=== PATIENT | female | born 1965 | race African-American/Black ===

== ENCOUNTER 2016-10-16 07:58 | Emergency (ER) | payer OTHER ==
[2016-10-16 08:06] VITALS: TEMP 98.1; BMI 56.6
[2016-10-16] MEDS ORDERED: ALBUTEROL SO4 0.083% IH SOL 2.5 MG/3 ML VIAL.NEB. NEB ONE (09:20)
[2016-10-16] MEDS ORDERED: DEXAMETHASONE LIQUID 0.5 MG/5 ML 240 ML BULK BOTTLE PO ONE (09:48)
[2016-10-16] MEDS ORDERED: ALBUTEROL SO4 2.5/IPRATROPIUM 0.5 INH SOL 3 ML VIAL.NEB. NEB ONE ×3 (09:48→11:01)
[2016-10-16] MEDS ORDERED: DEXAMETHASONE SOD PHOSPHATE 10 MG/1 ML VIAL ONE (09:51)
--- NOTE | 2016-10-16 09:53 | PDOC ---
History of Present Illness - General Chief Complaint: Shortness of Breath Stated Complaint: SOB, DIFFICULTY BREATHING Time Seen by Provider: 10/16/16 08:25 History Source: Patient Exam Limitations: No Limitations - History of Present Illness Initial Comments: 10/16/16 09:49 Patient is a 51-year-old female history of asthma, COPD, insulin-dependent diabetes, hypertension. Patient presents with productive cough, dyspneic, wheezing, states this a.m. had difficulty breathing used her inhaler once last night and once this morning. Patient reports 2 weeks ago ran out of her Singulair and stopped taking it, has been having increased difficulty since. No chest pain. Patient states she has a sensation of phlegm to throat ( postnasal drip) , unable to clear the sensation. O2 sats are 100 percent on room air. + clear productive cough. Past Medical History: Denies. Allergies: No known allergies Medications: See medication list Family History: Non-contributory Social History: Denies smoking, alcohol use, or IVDU Review of Systems GENERAL/CONSTITUTIONAL: No fever or chills. No weakness. No weight change. HEAD, EYES, EARS, NOSE AND THROAT: No change in vision. No ear pain or discharge. No sore throat. CARDIOVASCULAR: No chest pain or shortness of breath. RESPIRATORY: Cough, wheezing, no hemoptysis. Green productive cough. GASTROINTESTINAL: No nausea, vomiting, diarrhea or constipation. No rectal bleeding. GENITOURINARY: No dysuria, frequency, or change in urination. MUSCULOSKELETAL: No joint or muscle swelling or pain. No neck or back pain. SKIN : No rash or easy bruising. NEUROLOGIC: No headache, vertigo, loss of consciousness, or loss of sensation. ALLERGIC/IMMUNOLOGIC: No hives or skin allergy. No latex allergy. Physical Exam: GENERAL: The patient is awake, alert, and fully oriented, in no acute distress. EYES: Pupils equal, round and reactive to light, extraocular movements intact, sclera anicteric, conjunctiva clear. ENT: Ears normal, nares patent, oropharynx clear without exudates. Moist mucous membranes. No uvula deviation. No stridor NECK: Normal range of motion, supple without lymphadenopathy, JVD, or masses. LUNGS: Breath sounds are essentially clear, occasional expiratory wheezing. Noted with clear sputum after coughing. No rales. No decrease at the bases. HEART: Regular rate and rhythm, normal S1 and S2 without murmur, rub or gallop. ABDOMEN: Soft, nontender, normoactive bowel sounds. No guarding, no rebound. No masses. No bruising or abrasions MUSCULOSKELETAL: Normal range of motion, no edema. No clubbing or cyanosis. No cords, erythema, or tenderness. No CVA Tenderness with fist. NEUROLOGICAL: Cranial nerves II through XII grossly intact. Normal speech, normal gait. SKIN: Warm, Dry, normal turgor, no rashes or lesions noted. Past History - Past Medical History Allergies/Adverse Reactions: Allergies Allergy/AdvReac Type Severity Reaction Status Date / Time levofloxacin [From Levaquin] Allergy Rash Verified 10/16/16 08:06 Home Medications: Ambulatory Orders Enalapril Maleate [Vasotec -] 10 mg PO DAILY 09/08/14 Glimepiride [Amaryl -] 4 mg PO DAILY@0700 11/02/15 Insulin Glargine,Hum.rec.anlog [Lantus Solostar PEN (NF)] 20 units SQ HS Oxycodone HCl/Acetaminophen [Percocet 5-325 mg Tablet -] 1 - 2 tab PO Q4H PRN # 10 tablet MDD 4 11/02/15 Budesonide/Formeterol Fumarate [SYMBICORT 160/4.5mcg -] 1 inh PO BID 10/16/16 Montelukast Na [Singulair -] 10 mg PO HS #7 tablet 10/16/16 Prednisone [Deltasone -] 60 mg PO DAILY #15 tablet 10/16/16 Asthma: Yes COPD: Yes Diabetes: Yes HTN: Yes Suicide Attempt (Hx): No - Immunization History Immunization Up to Date: Yes - Psycho/Social/Smoking Cessation Hx Anxiety: No Suicidal Ideation: No Smoking Status: Yes Smoking History: Former smoker Have you smoked in the past 12 months: Yes Number of Cigarettes Smoked Daily: 11 If you are a former smoker, when did you quit?: 04/2015 Information on smoking cessation initiated: No 'Breaking Loose' booklet given: 03/30/13 Hx Alcohol Use: Yes (SOCIAL) Drug/Substance Use Hx: No Substance Use Type: None Hx Substance Use Treatment: No *Physical Exam - Vital Signs Last Vital Signs Temp Pulse Resp BP Pulse Ox 98.1 F 80 20 154/70 100 10/16/16 08:01 10/16/16 08:01 10/16/16 08:01 10/16/16 08:01 10/16/16 08:01 ED Treatment Course - LABORATORY CBC & Chemistry Diagram: 10/16/16 13:12 10/16/16 13:12 Medical Decision Making - Medical Decision Making 10/16/16 09:53 A/P: Patient is a 51-year-old female history of insulin-dependent diabetes, COPD , asthma. Patient states she ran out of her Mixer Labsir 2 weeks ago and feels she is having an exacerbation of her asthma. Combivent treatment given upon arrival, albuterol after, patient then reassessed , still with dyspnea. Third albuterol treatment given. Blood Sugar was 259, will give single dose of Decadron with strict instructions to monitor sugars . Patient reports that she did not take her medication prior to arrival for the diabetes. Decadron 10 mg by mouth 10/16/16 12:26 Patient still wheezing, dyspnea, not responding well to third treatment. Chest x -ray ordered. Patient transferred to main emergency department for higher level of care. Patient states she feels postnasal drip, tightening in throat and upper chest. Coughing clear sputum. Patient was initially triaged to Fast-track. After review of the history of present illness and physical examination by Nurse Practitioner, the patient was transferred to the main ED for higher lever of care. The patient is medically stable for transfer. 10/16/16 13:37 *DC/Admit/Observation/Transfer Diagnosis at time of Disposition: Upper respiratory infection Qualifiers: URI type: acute laryngitis Qualified Code(s): J04.0 - Acute laryngitis - Discharge Dispostion Disposition: HOME Condition at time of disposition: Stable Admit: No - Prescriptions Prescriptions: Prednisone [Deltasone -] 60 mg PO DAILY #15 tablet Montelukast Na [Singulair -] 10 mg PO HS #7 tablet - Referrals Referrals: Palmer Edmondson MD [Staff Physician] - - Patient Instructions Printed Discharge Instructions: DI for Croup Additional Instructions: You have croup. Croup is a viral respiratory infection that can cause sore throat, and the feeling like you are breathing through a straw. Take the prednisone as prescribed and take the entire prescription even if you are feeling better. Take 3 tabs of prednisone once a day for 5 days. Your singular was filled for 7 days. Follow up with your Pulmonolgist. You may also use a nebulizer with humidified air to help with your symptoms every few hours. Follow up with your primary care doctor in one week. Return to the ED if you have shortness of breath, feeling like your throat is closing, or if you have any changes in your symptoms. - Post Discharge Activity Work/School Note: Back to Work
[2016-10-16] MEDS ORDERED: MONTELUKAST NA 10 MG TABLET PO ONE (13:07)
[2016-10-16] MEDS ORDERED: guaiFENesin 200 MG/10 ML 10 ML UNIT-DOSE CUPS PO ONE (13:14)
--- NOTE | 2016-10-16 13:15 | PDOC ---
*Physical Exam - Vital Signs Last Vital Signs Temp Pulse Resp BP Pulse Ox 98.1 F 80 20 154/70 100 10/16/16 08:01 10/16/16 08:01 10/16/16 08:01 10/16/16 08:01 10/16/16 08:01 - Physical Exam Comments: 10/16/16 15:26 Received signout from nurse practitioner Tere Sebastian. Patient is a 51-year- old female who presents to the emergency department for shortness of breath and sore throat. Patient states that her symptoms started a couple days ago and she feels like her throat is closing. Patient has history of COPD and ran out of her Singulair 5 days ago. Received 3 duonebs and decadron in fast track with little relief. General Appearance: Yes: Nourished, Appropriately Dressed, Mild Distress HEENT: positive: EOMI, GINGER, Normal ENT Inspection, TMs Normal, Pharynx Normal. negative: Normal Voice (decreased voice) Neck: positive: Trachea midline, Normal Thyroid, Supple. negative: Tender, Rigid, Lymphadenopathy (R), Lymphadenopathy (L) Respiratory/Chest: positive: Lungs Clear, Normal Breath Sounds, Respiratory Distress (mild; Pt states she feels like she is breathing through a straw). negative: Accessory Muscle Use Cardiovascular: positive: Regular Rhythm, Regular Rate, S1, S2 (present). negative: JVD, Murmur Gastrointestinal/Abdominal: positive: Normal Bowel Sounds, Flat, Soft. negative : Tender, Organomegaly Integumentary: positive: Normal Color, Dry, Warm Neurologic: positive: Fully Oriented, Alert, Normal Mood/Affect, Normal Response , Motor Strength /5 ED Treatment Course - LABORATORY CBC & Chemistry Diagram: 10/16/16 13:12 10/16/16 13:12 - ADDITIONAL ORDERS Additional order review: Laboratory Results 10/16/16 09:35 POC Glucometer [id number] 10/16/16 09:35 POC Glucometer [id number] - Medications Given in the ED: ED Medications Discontinued Medications Generic Name Dose Route Start Last Admin Trade Name Freq PRN Reason Stop Dose Admin Albuterol/Ipratropium 1 amp 10/16/16 09:48 10/16/16 09:50 Duoneb - NEB 10/16/16 09:49 1 amp ONCE ONE Administration Albuterol/Ipratropium 1 amp 10/16/16 11:01 10/16/16 11:02 Duoneb - NEB 10/16/16 11:02 1 amp ONCE ONE Administration Dexamethasone 10 mg 10/16/16 09:48 10/16/16 09:53 Decadron Liquid - PO 10/16/16 09:49 1 dose ONCE ONE Administration Medical Decision Making - Medical Decision Making 10/16/16 15:24 Pt. presents with shortness of breath, and difficulty breathing. Breath sounds are normal and there is no wheezing appreciated. Most likely upper respiratory infection, cannot r/o epiglottitis, croup. 1. CBC, CMP, Trop, PT/INR 2. Rapid Strep 3. CXR, EKG, Soft tissue neck x-ray 4. Racemic epi, singular and mucinex 5. Re-evaluate 10/16/16 16:15 Strep is negative at this time. WBC slightly elevated at 11 CXR: negative for acute pulmonary pathology Pt. reports feeling a little better after the racemic epi and decadron (given in fast track) X-ray neck: narrowing of the trachea, (+) steeple sign. 10/16/16 16:23 Most likely croup. Pt. feeling better and ready to go home. Discharged home with prednisone and follow up with pulmonology.Pt. understands that she needs to check her sugars regularly at home while on the steroids as they can make her sugar elevated. Pt. understands all discharge instructions and all questions were answered at this time *DC/Admit/Observation/Transfer Diagnosis at time of Disposition: Upper respiratory infection Qualifiers: URI type: acute laryngitis Qualified Code(s): J04.0 - Acute laryngitis - Discharge Dispostion Disposition: HOME Condition at time of disposition: Stable Admit: No - Prescriptions Prescriptions: Prednisone [Deltasone -] 60 mg PO DAILY #15 tablet Montelukast Na [Singulair -] 10 mg PO HS #7 tablet - Referrals Referrals: Palmer Edmondson MD [Staff Physician] - - Patient Instructions Printed Discharge Instructions: DI for Croup Additional Instructions: You have croup. Croup is a viral respiratory infection that can cause sore throat, and the feeling like you are breathing through a straw. Take the prednisone as prescribed and take the entire prescription even if you are feeling better. Take 3 tabs of prednisone once a day for 5 days. Your singular was filled for 7 days. Follow up with your Pulmonolgist. You may also use a nebulizer with humidified air to help with your symptoms every few hours. Follow up with your primary care doctor in one week. Return to the ED if you have shortness of breath, feeling like your throat is closing, or if you have any changes in your symptoms. - Post Discharge Activity Work/School Note: Back to Work
[2016-10-16] MEDS ORDERED: guaiFENesin/D-METHORPHAN HB 10 ML UNIT-DOSE CUPS ONE (13:24)
[2016-10-16] MEDS ORDERED: MONTELUKAST NA 10 MG TABLET ONE (13:25)
[2016-10-16] MEDS ORDERED: RACEPINEPHRINE IH SOL 2.25% 11.25 MG/0.5 ML VIAL IH ONE (13:27)
[2016-10-16] MEDS ORDERED: RACEPINEPHRINE IH SOL 2.25% 11.25 MG/0.5 ML VIAL NEB ONE (13:31)
[2016-10-16] MEDS ORDERED: ONDANSETRON 4 MG/2 ML VIAL ONE ×2 (13:35→13:39)
[2016-10-16] MEDS ORDERED: ONDANSETRON 4 MG/2 ML VIAL IVPUSH ONE (13:35)
--- NOTE | 2016-10-16 13:45 | PDOC ---
*Physical Exam - Vital Signs Last Vital Signs Temp Pulse Resp BP Pulse Ox 98.1 F 80 20 154/70 100 10/16/16 08:01 10/16/16 08:01 10/16/16 08:01 10/16/16 08:01 10/16/16 08:01 - Physical Exam Comments: 10/16/16 13:39 VSS hoarse voice, airway patent without stridor, handling secretions easily. oropharynx clear with uvula midline, no edema/exudate/erythema lungs clear with good air entry, no prolonged expiration, no focally decreased breath sounds ED Treatment Course - LABORATORY CBC & Chemistry Diagram: 10/16/16 13:12 10/16/16 13:12 - ADDITIONAL ORDERS Additional order review: Laboratory Results 10/16/16 09:35 POC Glucometer [id number] 10/16/16 09:35 POC Glucometer [id number] - Medications Given in the ED: ED Medications Discontinued Medications Generic Name Dose Route Start Last Admin Trade Name Freq PRN Reason Stop Dose Admin Albuterol/Ipratropium 1 amp 10/16/16 09:48 10/16/16 09:50 Duoneb - NEB 10/16/16 09:49 1 amp ONCE ONE Administration Albuterol/Ipratropium 1 amp 10/16/16 11:01 10/16/16 11:02 Duoneb - NEB 10/16/16 11:02 1 amp ONCE ONE Administration Dexamethasone 10 mg 10/16/16 09:48 10/16/16 09:53 Decadron Liquid - PO 10/16/16 09:49 1 dose ONCE ONE Administration Epinephrine 1 vial 10/16/16 13:27 10/16/16 13:31 S-2 IH 10/16/16 13:28 1 vial ONCE ONE Administration Guaifenesin 10 ml 10/16/16 13:14 10/16/16 13:30 Robitussin - PO 10/16/16 13:15 10 ml ONCE ONE Administration Montelukast Sodium 10 mg 10/16/16 13:07 10/16/16 13:30 Singulair - PO 10/16/16 13:08 10 mg ONCE ONE Administration Medical Decision Making - Medical Decision Making 10/16/16 13:41 Patient seen and evaluated with the nurse practitioner. I agree with the overall evaluation, assessment, and management with the following summary of visit: 51-year-old female with history of COPD and diabetes presents with upper respiratory infection symptoms of initially mild cough 2 days ago that worsened yesterday and became associated with throat tightness/pain and reflexive cough. Denies any shortness of breath, does not feel that this is her asthma/COPD exacerbation. No fevers or chills, no difficulty swallowing, no painful swallowing. no known sick contacts. Upper airway infection/inflammation, ? bronchitis/croup, less likely epiglottitis given no pain or fever. received nebs and steroids in fast track without much improvement check labs/CXR trial of upper airway decongestants and racemic epi soft tissue neck xray reassess/dispo *DC/Admit/Observation/Transfer Diagnosis at time of Disposition: Upper respiratory infection Qualifiers: URI type: acute laryngitis Qualified Code(s): J04.0 - Acute laryngitis
[2016-10-16 13:51] LABS: BASOPHIL 0.4 % (0-2.0); EOSINOPHIL 0.1 % (0-4.5); MCH 29.4 pg (25.7-33.7); MEAN CELL VOLUME 88.9 fl (80-96); MEAN PLT VOLUME 9.2 fl (7.5-11.1); NEUTROPHILS 87.4 % (42.8-82.8); PLATELET COUNT 222 K/MM3 (134-434); RDW 14.3 % (11.6-15.6); WHITE BLOOD COUNT 11.4 K/mm3 (4.0-10.0)
[2016-10-16 13:57] LABS: ALBUMIN 3.7 g/dl (3.4-5.0); ALK PHOS 93 U/L (45-117); ANION GAP 10 (8-16); BILIRUBIN,TOTAL 0.5 mg/dL (0.2-1.0); CALCIUM 8.7 mg/dL (8.5-10.1); CO2 23 mmol/L (21-32); CREATININE 0.9 mg/dL (0.55-1.02); SGOT/AST 13 U/L (15-37); SGPT/ALT 23 U/L (12-78); TOT PROT 7.7 g/dl (6.4-8.2)
[2016-10-16 14:00] LABS: TROPONIN I < 0.02 ng/ml (0.00-0.05)
[2016-10-16 14:03] LABS: GLUCOSE,RANDOM 304 mg/dL (74-106); INR 0.96 (0.82-1.09); PROTHROMBIN TIME (PATIENT) 10.6 SEC (9.98-11.88)
[2016-10-16 16:45] VITALS: BP 149/102; PULSE 82
== END 2016-10-16 16:45 | disposition home or self-care (01) ==
LOC: JER 07:58 → JERFT 07:58 → JER 16:45
PROC: 3E0F7GC Introduction of Other Therapeutic Substance into Respiratory Tract, Via Natural or Artificial Opening (ICD-10-PCS; principal; 2016-10-16)
PROC: 3E0F7GC Introduction of Other Therapeutic Substance into Respiratory Tract, Via Natural or Artificial Opening (ICD-10-PCS; 2016-10-16)
PROC: 3E0F7GC Introduction of Other Therapeutic Substance into Respiratory Tract, Via Natural or Artificial Opening (ICD-10-PCS; 2016-10-16)
PROC: 3E033GC Introduction of Other Therapeutic Substance into Peripheral Vein, Percutaneous Approach (ICD-10-PCS; 2016-10-16)
DX: J06.9 Acute upper respiratory infection, unspecified (principal); J04.0 Acute laryngitis; J45.909 Unspecified asthma, uncomplicated; J44.9 Chronic obstructive pulmonary disease, unspecified; E11.9 Type 2 diabetes mellitus without complications; I10 Essential (primary) hypertension; Z79.4 Long term (current) use of insulin; Z79.84 Long term (current) use of oral hypoglycemic drugs
CPT/HCPCS: 36415; 70360-TC; 71020-TC; 80053; 82550; 83880; 84484; 85025; 85610; 87070; 87430; 99282-25

== ENCOUNTER 2017-08-04 11:10 | Observation (INO) | payer BC, OTHER ==
--- NOTE | 2017-08-04 11:22 | PDOC ---
History of Present Illness - General Stated Complaint: CHEST PAIN History Source: Patient, EMS Exam Limitations: No Limitations - History of Present Illness Initial Comments: 08/04/17 11:53 Pt is a 52 yo with PMHx of HTN, COPD, DM and current smoker, not compliant on medications, presenting with sudden onset chest pain this afternoon. Pt noted a 10/10 sudden retrosternal/left sided gripping chest pain radiating to L arm this afternoon after smoking a cigarette. 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 It lasted for about 10seconds with associated shortness of breath. The pain was worsened by leaning forward and improved by laying flat. Pt reports never having similar symptoms in the past. On her way to the ER, in the ambulance she felt a numbness on the left side of her face with twitching of her L arm and fingers. Pt reports having intermittent twitches and numbness in the past. No blurring of vision, no facial droop, no slurred speechor weakness of any side of her body. Pt reports not taking medications for several months. No fevers or headaches, no hx of bug bites, no siezures or syncope. No cough or dyspepsia. No abdominal pain or dysuria. 08/04/17 14:58 Timing/Duration: unsure Severity: moderate Associated Symptoms: denies: cough, fever/chills Past History - Past Medical History Allergies/Adverse Reactions: Allergies Allergy/AdvReac Type Severity Reaction Status Date / Time levofloxacin [From Levaquin] Allergy Rash Verified 10/16/16 08:06 Home Medications: Ambulatory Orders Enalapril Maleate [Vasotec -] 10 mg PO DAILY 08/04/17 Asthma: Yes COPD: Yes Diabetes: Yes HTN: Yes - Immunization History Immunization Up to Date: Yes - Suicide/Smoking/Psychosocial Hx Smoking Status: Yes Smoking History: Former smoker Have you smoked in the past 12 months: Yes Number of Cigarettes Smoked Daily: 11 If you are a former smoker, when did you quit?: 04/2015 'Breaking Loose' booklet given: 03/30/13 Hx Alcohol Use: Yes (SOCIAL) Drug/Substance Use Hx: No Substance Use Type: None Hx Substance Use Treatment: No Review of Systems - Review of Systems Constitutional: No: Chills, Diaphoresis, Fever, Loss of Appetite, Night Sweats, Weakness HEENTM: Yes: Other (Pt repeated transient numbness on L side of her face). No: Blurred Vision, Nose Congestion, Throat Pain *Physical Exam - Physical Exam General Appearance: Yes: Appropriately Dressed, Obese. No: Apparent Distress HEENT: positive: EOMI, GINGER, Normal ENT Inspection, Symmetrical. negative: Pharyngeal Erythema Neck: positive: Supple. negative: Tender Respiratory/Chest: positive: Lungs Clear, Normal Breath Sounds. negative: Chest Tender, Respiratory Distress, Wheezing Cardiovascular: positive: Regular Rate, S1, S2. negative: Edema Gastrointestinal/Abdominal: positive: Normal Bowel Sounds, Soft Musculoskeletal: negative: CVA Tenderness Extremity: positive: Normal Inspection. negative: Pedal Edema, Calf Tenderness Integumentary: positive: Dry, Warm. negative: Cyanotic Neurologic: positive: Fully Oriented, Alert, Motor Strength 5/5, Sensory Deficit (questionable reduced touch sensation on the L side of face and LUE) Heart Score/ECG Review - History History: Moderately suspicious - Electrocardiogram EKG: Normal - Age Age: 45-65 - Risk Factors Risk Factors Heart Score: Yes Hx Hypertension, Yes Hx Diabetes, Yes Smoking History Based on the list above the patient has:: >/=3 risk factors or Hx atherosclerotic disease - Troponin Troponin: </= normal limit - Score Heart Score - Total: 4 ED Treatment Course - LABORATORY CBC & Chemistry Diagram: 08/04/17 11:55 08/04/17 11:55 Medical Decision Making - Medical Decision Making 08/04/17 14:12 Basic labs- CBC, CMP, PT/PTT, trops, EKG, Cardiac monitoring- R/O ACS CT head done Considering hx of altered L side sensation, seems to have resolved R/O stroke CT head negative Trop negative for repeat in 4 hours 08/04/17 14:17 D/W Dr April [place] Patient has been accepted for tele obs admission under Dr Lopez Requested to consult Dr Ramesh *DC/Admit/Observation/Transfer Diagnosis at time of Disposition: Atypical chest pain - Discharge Dispostion Disposition: AGAINST MEDICAL ADVICE Admit: Yes - Referrals - Patient Instructions - Post Discharge Activity - Attestations Physician Attestion: 08/04/17 14:18 Jocelyn Laguna MD
--- NOTE | 2017-08-04 11:27 | PDOC ---
Attending Attestation - Resident Resident Name: Jocelyn Laguna Slade - HPI HPI: 08/04/17 12:26 The patient is a 52 year old female with past medical history of hypertension, IDDM, COPD, and asthma who arrives to the ED via EMS for chest pain that began this morning. The patient states that she felt a profound sharp pain in her left chest this morning that caused her to go down and slip out of the chair she was sitting in. She states the pain radiated to her left upper back and was associated with numbness in her left face and left upper extremity. It was not associated with any LOC, palpitations or diaphoresis. She reports that for the past few weeks she has been experiencing dull chest pains as well as loss of sensation in her left face and arm, but today the pain was severe. She also adds that she has been off of her blood pressure medications for a few weeks due to not getting a refill on her prescription. She denies any cough, shortness of breath, nausea, vomiting, diarrhea, or urinary complaints. - Physicial Exam PE: 08/04/17 12:27 GENERAL: Awake, alert, and fully oriented, in no acute distress HEAD: No signs of trauma EYES: PERRLA, EOMI, sclera anicteric, conjunctiva clear ENT: Auricles normal inspection, hearing grossly normal, nares patent, oropharynx clear without exudates. Moist mucosa NECK: Normal ROM, supple, no lymphadenopathy, JVD, or masses LUNGS: Breath sounds equal, clear to auscultation bilaterally. No wheezes, and no crackles HEART: Regular rate and rhythm, normal S1 and S2, no murmurs, rubs or gallops ABDOMEN: Soft, nontender, normoactive bowel sounds. No guarding, no rebound. No masses EXTREMITIES: Normal range of motion, no edema. No clubbing or cyanosis. No cords, erythema, or tenderness NEUROLOGICAL: A&O x3 5/5 strength in bilateral upper and lower extremities. Decreased light touch and pin prick sensation over L face and arm. Cranial nerves II through XII grossly intact. Normal speech SKIN: Warm, Dry, normal turgor, no rashes or lesions noted. - Medical Decision Making 08/04/17 12:28 Documentation prepared by Jhoana Montenegro, acting as medical insurance claims specialist for Katherine Moreland MD. <Jhoana Montenegro - Last Filed: 08/04/17 12:26> - Medical Decision Making 08/04/17 12:57 Pt presents to the ED complaining of chest pain and L sided arm and face numbness. History of multiple TIAs and HTN, non compliant with meds. EKG shows normal sinus rhythm without St changes. Given her persistent chest pain and multiple risk factors, I feel that the patient is at moderate risk of ACS and should be observed to rule out ACS. <Katherine Moreland - Last Filed: 08/04/17 13:04>
[2017-08-04] MEDS ORDERED: ASPIRIN 81 MG CHEWABLE TABLETS PO ONE (11:37)
[2017-08-04] MEDS ORDERED: ASPIRIN 81 MG CHEWABLE TABLETS ONE (11:44)
[2017-08-04 12:06] LABS: BASO % 1.3 % (0-2.0); EOS % 3.1 % (0-4.5); HEMOGLOBIN 15.2 GM/dL (10.7-15.3); LYMPH % 34.5 % (8-40); MCH 31.2 pg (25.7-33.7); MCHC 34.4 g/dl (32.0-36.0); MEAN CELL VOLUME 90.6 fl (80-96); MEAN PLT VOLUME 8.7 fl (7.5-11.1); MONO % 7.9 % (3.8-10.2); NEUT % 53.2 % (42.8-82.8); PLATELET COUNT 252 K/MM3 (134-434); RBC 4.86 M/mm3 (3.60-5.2); RDW 13.5 % (11.6-15.6); WHITE BLOOD COUNT 8.5 K/mm3 (4.0-10.0)
[2017-08-04 12:17] VITALS: PULSE 78; BMI 60.0
[2017-08-04 12:23] LABS: INR 0.97 (0.82-1.09)
[2017-08-04 12:33] LABS: ALBUMIN 3.5 g/dl (3.4-5.0); ANION GAP 11 (8-16); BLOOD UREA NITROGEN 9 mg/dL (7-18); CHLORIDE 105 mmol/L (98-107); CO2 25 mmol/L (21-32); CREATININE 0.7 mg/dL (0.55-1.02); GLUCOSE,RANDOM 209 mg/dL (74-106); POTASSIUM 4.2 mmol/L (3.5-5.1); SGOT/AST 14 U/L (15-37); SGPT/ALT 23 U/L (12-78); SODIUM 141 mmol/L (136-145)
[2017-08-04 12:37] LABS: ALK PHOS 84 U/L (45-117); BILIRUBIN,TOTAL 0.8 mg/dL (0.2-1.0); TOT PROT 7.1 g/dl (6.4-8.2)
[2017-08-04 14:22] VITALS: BP 118/68; TEMP 98.2
--- NOTE | 2017-08-04 16:11 | EKG ---
Test Reason : Blood Pressure : / mmHG Vent. Rate : 080 BPM Atrial Rate : 080 BPM P-R Int : 188 ms QRS Dur : 082 ms QT Int : 416 ms P-R-T Axes : 047 020 027 degrees QTc Int : 479 ms NORMAL SINUS RHYTHM CANNOT RULE OUT ANTERIOR INFARCT , AGE UNDETERMINED ABNORMAL ECG WHEN COMPARED WITH ECG OF 08-SEP-2014 09:25, NO SIGNIFICANT CHANGE WAS FOUND Confirmed by MD Jame, Lino ([id number]) on 08/04/2017 4:11:20 PM Referred By: Confirmed By:Lino Kilgore MD
[2017-08-04 16:45] LABS: URINE APPEARANCE SLCLOUDY; URINE BILIRUBIN NEGATIVE (<2.0 mg/dL); URINE COLOR YELLOW; URINE GLUCOSE (UA) 2+ (NEGATIVE); URINE KETONE TRACE (NEGATIVE); URINE NITRITE POSITIVE (NEGATIVE); URINE PROTEIN NEGATIVE (NEGATIVE); URINE UROBILINOGEN NEGATIVE mg/dL (0.2-1.0)
[2017-08-04 16:48] LABS: URINE LEUK ESTERASE 3+ (NEGATIVE)
[2017-08-04 16:50] LABS: EPI CELLS RARE /HPF (FEW); URINE BACTERIA MANY /hpf (NONE SEEN); URINE MUCUS RARE
--- NOTE | 2017-08-05 10:45 | CON.CARD ---
Consult Consult Specialty:: cardio - History of Present Illness Chief Complaint: cp History of Present Illness: 52 yo female here with chest pain PMH: HTN, COPD, DM, active cigs - Past Medical History Pulmonary: Yes: Asthma ...LMP: 10/21/13 - Past Surgical History Past Surgical History: Yes: None - Alcohol/Substance Use Hx Alcohol Use: Yes (SOCIAL) - Smoking History Smoking history: Former smoker Have you smoked in the past 12 months: Yes Aproximately how many cigarettes per day: 11 If you are a former smoker, when did you quit?: 04/2015 Home Medications - Allergies Allergies/Adverse Reactions: Allergies Allergy/AdvReac Type Severity Reaction Status Date / Time levofloxacin [From Levaquin] Allergy Rash Verified 10/16/16 08:06 - Home Medications Home Medications: Ambulatory Orders Enalapril Maleate [Vasotec -] 10 mg PO DAILY 08/04/17 Vital Signs: Vital Signs Temperature 98.2 F 08/04/17 14:15 Pulse Rate 78 08/04/17 14:15 Respiratory Rate 18 08/04/17 14:15 Blood Pressure 118/68 08/04/17 14:15 O2 Sat by Pulse Oximetry (%) 99 08/04/17 14:15 - Other Data Labs, Other Data: CBC, BMP 08/04/17 11:55 08/04/17 11:55 INR, PTT INR 0.97 (0.82-1.09) 08/04/17 11:55 Troponin, BNP 08/04/17 08/04/17 11:55 14:50 Troponin I < 0.02 < 0.02 Troponin, BNP 08/04/17 08/04/17 11:55 14:50 Troponin I < 0.02 < 0.02 Laboratory Tests 08/04/17 08/04/17 08/04/17 11:55 11:55 14:50 WBC 8.5 Hgb 15.2 Plt Count 252 Sodium 141 Potassium 4.2 Carbon Dioxide 25 BUN 9 Creatinine 0.7 AST 14 L ALT 23 Troponin I < 0.02 < 0.02 Assessment/Plan ECG: NSR. normal axis. no path q's. nosnp TWAs septal leads--change vs 08/2014 prior CXR: chest pain: -mult CV rf's -trop negative initially--repeat ordered -ECG with nonspecific T wave changes vs prior -check CXR once urine negative HTN: -bp up initially, reportedly with med non-compliance hx -bp normalized--observe trend DM: -per PMD HPL: -cont home meds (if pt willing), list to be clarified by pmd + cigs, active: -cessation benefits counselled
--- NOTE | 2017-08-05 19:35 | HP ---
Admitting History and Physical - Admission History of Present Illness: I went to see pt this afternoon. Apparently pt had signed out ama last evening. - Past Medical History Pulmonary: Yes: Asthma ...LMP: 10/21/13 - Past Surgical History Past Surgical History: Yes: None - Smoking History Smoking history: Former smoker Have you smoked in the past 12 months: Yes Aproximately how many cigarettes per day: 11 If you are a former smoker, when did you quit?: 04/2015 - Alcohol/Substance Use Hx Alcohol Use: Yes (SOCIAL) Home Medications - Allergies Allergies/Adverse Reactions: Allergies Allergy/AdvReac Type Severity Reaction Status Date / Time levofloxacin [From Levaquin] Allergy Rash Verified 10/16/16 08:06 - Home Medications Home Medications: Ambulatory Orders Enalapril Maleate [Vasotec -] 10 mg PO DAILY 08/04/17 Physical Examination Vital Signs: Vital Signs Temperature 98.2 F 08/04/17 14:15 Pulse Rate 78 08/04/17 14:15 Respiratory Rate 18 08/04/17 14:15 Blood Pressure 118/68 08/04/17 14:15 O2 Sat by Pulse Oximetry (%) 99 08/04/17 14:15 Labs: CBC, BMP 08/04/17 11:55 08/04/17 11:55
== END 2017-08-04 18:15 | disposition left against medical advice (07) ==
LOC: JER 11:10 → JERBED 14:18
PROVIDERS: ADMIT Internal Medicine; ATTEND Internal Medicine
DX: R07.89 Other chest pain (principal); I10 Essential (primary) hypertension; E11.9 Type 2 diabetes mellitus without complications; J44.9 Chronic obstructive pulmonary disease, unspecified; F17.210 Nicotine dependence, cigarettes, uncomplicated; E66.9 Obesity, unspecified; Z68.44 Body mass index [BMI] 60.0-69.9, adult; Z91.14 Patient's other noncompliance with medication regimen; Z88.1 Allergy status to other antibiotic agents
CPT/HCPCS: 36415; 70450-TC; 80053; 81003; 81015; 82550; 84484; 84703; 85025; 85610; 85730; 93005; 93010; 99282-25; G0378

== ENCOUNTER 2018-01-13 19:15 | Emergency (ER) | payer SELFPAY ==
[2018-01-13 19:56] VITALS: TEMP 98.1; BMI 60.0
--- NOTE | 2018-01-13 19:57 | PDOC ---
Rapid Medical Evaluation Chief Complaint: Lightheaded Time Seen by Provider: 01/13/18 19:53 Medical Evaluation: Allergies Allergy/AdvReac Type Severity Reaction Status Date / Time levofloxacin [From Levaquin] Allergy Rash Verified 10/16/16 08:06 01/13/18 19:55 I have performed a brief in person evaluation of this patient. The patient presents with a chief complaint of: Dizziness Pt was recently discharged from the hospital with dx of Menieres disease. She is currently taking Scopolamine patches which she states is not working. Pt also states that "they see lesions on my head CT and my insurance will not pay for an MRI." Pertinent PE: Skin: Clear Lungs: Clear Heart: RRR MS: Moves all extremities without difficulty. Neuro: Alert and oriented. Smile symmetric, no slurred speech, no protonator drift Psych: Appropriate affect The patient will proceed to: pt will go to the main ED for further evaluation. Discharge Disposition - Diagnosis Meniere disease Qualifiers: Laterality: left Qualified Code(s): H81.02 - Meniere's disease, left ear - Referrals - Patient Instructions - Post Discharge Activity
--- NOTE | 2018-01-13 23:18 | PDOC ---
Attending Attestation - Resident Resident Name: Jarad Cat - ED Attending Attestation I have performed the following: I have examined & evaluated the patient, The case was reviewed & discussed with the resident, I agree w/resident's findings & plan, Exceptions are as noted - Medical Decision Making 01/13/18 23:41 pt feels much better ,her vertigo has resolved -she took her scopalamine and meclizine before coming here -however she didnt take the full dose of her meclizine imp pt just discharged from [facility] after being diagnosed with Meniere's ds plan see Dr Xavi garcia thsi Saturday,arrange for her MRI <Elsa Webb - Last Filed: 01/13/18 23:41> - HPI HPI: 01/13/18 23:20 The patient is a 53 year old female, with a significant past medical history of COPD and new diagnosis of Meniere's disease (admitted to [facility] for 5 days and prescribed medications), who presents to the emergency department with dizziness which has resolved at this time. She states she would like to go home. She states she only took 12.5 of the 25mg meclizine prescribed to her. The patient denies chest pain, shortness of breath, headache. The patient denies fever, chills, nausea, vomit, diarrhea and constipation. The patient denies dysuria, frequency, urgency and hematuria. Allergies: levofloxacin - Physicial Exam PE: 01/13/18 23:21 GENERAL: Well-appearing, well-nourished. No apparent distress. HEENT: Normocephalic, atraumatic. PERRL, EOM intact. CARDIOVASCULAR: Normal S1, S2. Regular rate and rhythm. PULMONARY: Clear to auscultation bilaterally. ABDOMEN: Soft, non-distended, non-tender. EXTREMITIES: Normal ROM in all four extremities. No gross deformities. SKIN: Warm, dry. No rash NEUROLOGICAL: No focal neurological deficits. - Medical Decision Making 01/13/18 23:21 Documentation prepared by Aliyah Kulkarni, acting as medical office representative for Elsa Webb MD <Aliyah Kulkarni - Last Filed: 01/13/18 23:46>
[2018-01-13] MEDS ORDERED: MECLIZINE HCL 25 MG TABLET (FP) PO ONE (23:23)
--- NOTE | 2018-01-13 23:27 | PDOC ---
History of Present Illness - General Chief Complaint: Lightheaded Stated Complaint: DIFF. BREATHING Time Seen by Provider: 01/13/18 19:53 - History of Present Illness Initial Comments: 53 yo F w a hx of hypertension, IDDM, COPD, asthma, and a recently diagnosed Menierres disease at [facility] who arrives to the ED with the CC of Left ear pain, tinnitus and vertigo. She reports that the pain was worse earlier today but by the time I arrived at bedside to interview the patient the pain and dizziness had subsided. She was given prescriptions for meclizine and scopolamine by [facility] but she only took half of her prescribed dose of meclizine - 12.5. She has no other complaints at the moment. Denies any fever, chills, diarrhea, chest pain. PCP: elliott mendez Social Hx: smokes 1/3 PPD. Denies alcohol illicit drugs. Allergies: levofloxacin Past History - Past Medical History Allergies/Adverse Reactions: Allergies Allergy/AdvReac Type Severity Reaction Status Date / Time levofloxacin [From Levaquin] Allergy Rash Verified 01/13/18 19:56 Home Medications: Ambulatory Orders Penicillin V Potassium [Pen Vee K] 500 mg PO TID #21 tablet 07/27/11 Enalapril Maleate [Vasotec -] 10 mg PO DAILY 08/04/17 Asthma: Yes COPD: Yes Diabetes: Yes HTN: Yes - Immunization History Immunization Up to Date: Yes - Suicide/Smoking/Psychosocial Hx Smoking Status: Yes Smoking History: Never smoked Have you smoked in the past 12 months: Yes Number of Cigarettes Smoked Daily: 6 If you are a former smoker, when did you quit?: 04/2015 'Breaking Loose' booklet given: 03/30/13 Hx Alcohol Use: Yes (SOCIAL) Drug/Substance Use Hx: No Substance Use Type: None Hx Substance Use Treatment: No Review of Systems - Review of Systems Comments:: CONSTITUTIONAL: Absent: fever, chills, diaphoresis, generalized weakness, malaise, loss of appetite HEENT: Present: ear pain Absent: rhinorrhea, nasal congestion, throat pain, throat swelling, difficulty swallowing, mouth swelling, ear pain, visual Changes CARDIOVASCULAR: Absent: chest pain, syncope, palpitations, irregular heart rate, lightheadedness , peripheral edema RESPIRATORY: Present: Cough, shortness of breath Absent: dyspnea with exertion, orthopnea, wheezing, stridor, hemoptysis GASTROINTESTINAL: Absent: abdominal pain, abdominal distension, nausea, vomiting, diarrhea, constipation, melena, hematochezia GENITOURINARY: Absent: dysuria, frequency, urgency, hesitancy, hematuria, flank pain, genital pain MUSCULOSKELETAL: Absent: myalgia, arthralgia, joint swelling SKIN: Absent: rash, itching, pallor HEMATOLOGIC/IMMUNOLOGIC: Absent: easy bleeding, easy bruising, lymphadenopathy, frequent infections ENDOCRINE: Absent: unexplained weight gain, unexplained weight loss, heat intolerance, cold intolerance NEUROLOGIC: Present: Dizziness Absent: headache, focal weakness or paresthesias, seizure, mental status changes , bladder or bowel incontinence PSYCHIATRIC: Absent: anxiety, depression, suicidal or homicidal ideation, hallucinations. *Physical Exam - Vital Signs Last Vital Signs Temp Pulse Resp BP Pulse Ox 98.1 F 74 18 136/69 99 01/13/18 19:53 01/13/18 19:53 01/13/18 19:53 01/13/18 19:53 01/13/18 19:53 - Physical Exam Comments: GENERAL: Awake and alert. No acute distress. HEENT: Normocephalic, atraumatic. PERRLA, EOMI. No conjunctival pallor. Sclera are non- icteric. Moist mucous membranes. Oropharynx is clear. NECK: Supple. Full ROM. No JVD. No thyromegaly. No lymphadenopathy. CARDIOVASCULAR: Regular rate and rhythm. No murmurs, rubs, or gallops. Distal pulses are 2+ and symmetric. PULMONARY: No evidence of respiratory distress. Lungs clear to auscultation bilaterally. No wheezing, rales or rhonchi. ABDOMINAL: Soft. Non-tender. Non-distended. No rebound or guarding. No organomegaly. Normoactive bowel sounds. MUSCULOSKELETAL Normal range of motion at all joints. No bony deformities or tenderness. No CVA tenderness. EXTREMITIES: No cyanosis. No clubbing. No edema. No calf tenderness. SKIN: Warm and dry. Normal capillary refill. No rashes. No jaundice. NEUROLOGICAL: Alert, awake, appropriate. There is decreased sensation on the left side of her face. Decreased hearing out of the left ear. No motor deficits in the in face, upper extremities and lower extremities. Normal speech. PSYCHIATRIC: Cooperative. Good eye contact. Appropriate mood and affect. Medical Decision Making - Medical Decision Making 53 yo F w a hx of hypertension, IDDM, COPD, asthma, and a recently diagnosed Menierres disease at [facility] who arrives to the ED with the CC of Left ear pain, tinnitus and vertigo. She reports that the pain was worse earlier today but by the time I arrived at bedside to interview the patient the pain and dizziness had subsided. She was given prescriptions for meclizine and scopolamine by [facility] but she only took half of her prescribed dose of meclizine - 12.5. Plan: meclizine Will DC patient with ENT FU, PCP fu, MRI referral. *DC/Admit/Observation/Transfer Diagnosis at time of Disposition: Meniere disease Qualifiers: Laterality: left Qualified Code(s): H81.02 - Meniere's disease, left ear - Discharge Dispostion Disposition: HOME Condition at time of disposition: Stable Decision to Admit order: No - Referrals Referrals: Peter Lopez MD [Primary Care Provider] - Wei Angel MD [Staff Physician] - - Patient Instructions Printed Discharge Instructions: DI for Meniere's Disease Additional Instructions: You came into the ER with tinnitus, ear pain, and dizziness. The most important thing moving forward is for you to get an MRI and have an appointment with your primary care doc as well as an ENT doc. Please make sure to schedule an Appt with your primary care doctor in the next 3 to 5 days to have your MRI scheduled. We are also giving you a number for an ENT doctor - Doctor Stanley. Please call him up to schedule an appointment. Come back to the ER if your pain worsens, you fall down and hit your head, get a high fever, or have any other new or worsening concerns. Thank you for coming to the [facility] ER. We hope you feel better soon! Print Language: YI - Post Discharge Activity
[2018-01-13] MEDS ORDERED: MECLIZINE HCL 12.5 MG TABLET ONE (23:47)
[2018-01-13 23:57] VITALS: BP 119/61; PULSE 80
== END 2018-01-13 23:57 | disposition home or self-care (01) ==
LOC: JER 19:15
DX: H81.02 Meniere's disease, left ear (principal); E11.9 Type 2 diabetes mellitus without complications; Z79.4 Long term (current) use of insulin; J44.9 Chronic obstructive pulmonary disease, unspecified; J45.909 Unspecified asthma, uncomplicated; I10 Essential (primary) hypertension
CPT/HCPCS: 99281-25

== ENCOUNTER 2018-06-22 15:22 | Inpatient (IN) | payer BC ==
[2018-06-22 15:35] VITALS: BMI 53.1
[2018-06-22] MEDS ORDERED: predniSONE 20 MG TABLET (UD) PO ONE (15:57)
[2018-06-22] MEDS ORDERED: predniSONE 20 MG TABLET (UD) ONE (16:00)
[2018-06-22] MEDS ORDERED: ALBUTEROL SO4 2.5/IPRATROPIUM 0.5 INH SOL 3 ML VIAL.NEB. NEB ONE ×3 (16:00→19:28)
[2018-06-22] MEDS: ALBUTEROL SO4 2.5/IPRATROPIUM 0.5 INH SOL 3 ML VIAL.NEB. NEB SCH ×3 (16:02→17:23)
--- NOTE | 2018-06-22 16:08 | PDOC ---
History of Present Illness - General Chief Complaint: Asthma Stated Complaint: ASTHMA Time Seen by Provider: 06/22/18 15:46 History Source: Patient Exam Limitations: No Limitations Past History - Past Medical History Allergies/Adverse Reactions: Allergies Allergy/AdvReac Type Severity Reaction Status Date / Time levofloxacin [From Levaquin] Allergy Rash Verified 06/22/18 15:31 Home Medications: Ambulatory Orders Penicillin V Potassium [Pen Vee K] 500 mg PO TID #21 tablet 07/27/11 Enalapril Maleate [Vasotec -] 10 mg PO DAILY 08/04/17 Asthma: Yes COPD: Yes Diabetes: Yes HTN: Yes - Immunization History Immunization Up to Date: Yes - Suicide/Smoking/Psychosocial Hx Smoking Status: Yes Smoking History: Never smoked Have you smoked in the past 12 months: Yes Number of Cigarettes Smoked Daily: 6 If you are a former smoker, when did you quit?: 04/2015 'Breaking Loose' booklet given: 03/30/13 Hx Alcohol Use: No Drug/Substance Use Hx: No Substance Use Type: None Hx Substance Use Treatment: No *Physical Exam - Vital Signs Last Vital Signs Temp Pulse Resp BP Pulse Ox 98.2 F 64 16 147/78 97 06/22/18 15:31 06/22/18 15:31 06/22/18 15:31 06/22/18 15:31 06/22/18 15:31 - Physical Exam General Appearance: No: Apparent Distress HEENT: positive: Pharynx Normal Respiratory/Chest: positive: Wheezing (diffuse wheezing B/L). negative: Respiratory Distress, Accessory Muscle Use, Labored Respiration, Paradoxal Breathing Cardiovascular: positive: Regular Rhythm, Regular Rate, S1, S2. negative: Murmur Gastrointestinal/Abdominal: positive: Normal Bowel Sounds, Soft. negative: Tender, Distended, Guarding, Rebound Integumentary: positive: Normal Color Neurologic: positive: Alert, Normal Mood/Affect Moderate Sedation - Procedure Monitoring Vital Signs: Procedure Monitoring Vital Signs Temperature 98.2 F 06/22/18 15:31 Pulse Rate 64 06/22/18 15:31 Respiratory Rate 16 06/22/18 15:31 Blood Pressure 147/78 06/22/18 15:31 O2 Sat by Pulse Oximetry (%) 97 06/22/18 15:31 Medical Decision Making - Medical Decision Making 53 y/o F obese, smoker (around 8-10 cigs/day x 23 years) hx of COPD (never intubated, never hospitalized), HTN, IDDM presents with SOB, chest tightness and wheezing x 2 days. Has occasional productive cough as well. Denies fever, congestion, rhinorrhea, body aches, chills, abd pain, n/v. Feels like her typical COPD. Currently takes Albuterol, Singulair and Ellipta for her COPD. Ran out of her Albuterol med which usually helps with acute attacks. COPD exacerbation Plan: Duonebs x3, Prednisone, reassess 06/22/18 16:09 Patient received 3 duonebs and steroids but still appears a bit tachypneic Patient feels slight improvement Wheezing improved on auscultation On ambulation O2 sat goes from 99% to 94-95% Will admit patient for further treatment of COPD Labs drawn and sent CXR and EKG pending Patient signed out to RIC Diaz 06/22/18 17:37 *DC/Admit/Observation/Transfer Diagnosis at time of Disposition: COPD exacerbation - Discharge Dispostion Condition at time of disposition: Stable - Referrals Referrals: Peter Lopez MD [Primary Care Provider] - - Patient Instructions - Post Discharge Activity
--- NOTE | 2018-06-22 17:37 | PDOC ---
*Physical Exam - Vital Signs Last Vital Signs Temp Pulse Resp BP Pulse Ox 98.2 F 64 16 147/78 97 06/22/18 15:31 06/22/18 15:31 06/22/18 15:31 06/22/18 15:31 06/22/18 15:31 ED Treatment Course - LABORATORY CBC & Chemistry Diagram: 06/22/18 17:33 06/22/18 17:33 - Medications Given in the ED: ED Medications Discontinued Medications Generic Name Dose Route Start Last Admin Trade Name [place] PRN Reason Stop Dose Admin Albuterol/Ipratropium 1 amp 06/22/18 16:00 06/22/18 17:23 Duoneb - NEB 06/22/18 16:31 1 amp Q15M DEEPALI Administration Albuterol/Ipratropium 1 amp 06/22/18 17:22 06/22/18 17:23 Duoneb - NEB 06/22/18 17:23 1 amp ONCE ONE Administration Prednisone 60 mg 06/22/18 15:57 06/22/18 16:02 Deltasone - PO 06/22/18 15:58 60 mg ONCE ONE Administration Medical Decision Making - Medical Decision Making 06/22/18 17:32 Pt received in sign out from ALFONSO kraus. Pt with COPD, DM , smoker, and HTN. Pt w/ SOB and wheezing. After 3 txs and prednisone, pt continues to wheeze and feels fatigued w/ minimal exertion. pt ambulated approx 75 feet and was satting at 95%. Pt ordered fro 4th neb, labs, and cxr. Pt belongs to Mykel Lopez. Pt will be admitted to hospitalist group. 06/22/18 17:55 Laboratory Tests 06/22/18 17:33 WBC 12.4 H Hgb 14.3 Hct 41.5 Absolute Neuts (auto) 8.1 H Cxr w/ no acute pathology. No pneumonia. 06/22/18 18:26 Laboratory Tests 06/22/18 06/22/18 17:33 18:01 VBG pH 7.39 POC VBG pCO2 39.2 L POC VBG pO2 45.1 H VBG HCO3 23.4 VBG O2 Sat (Arthur) 77.0 VBG Base Excess -0.7 Sodium 139 Potassium 3.8 Chloride 107 Carbon Dioxide 26 Anion Gap 6 L BUN 10 Creatinine 0.8 Random Glucose 162 H Calcium 8.4 L Total Bilirubin 0.4 AST 12 L ALT 26 Alkaline Phosphatase 78 Troponin I < 0.02 B-Natriuretic Peptide 187.2 H Total Protein 7.0 Albumin 3.3 L Pt continued to wheeze after 4th tx and then became SOB while ambulating to the main ED and could not say more than 7 words between breaths. 06/22/18 18:32 Case discussed w/ Rohit and accepted. Admission placed under dr lopez *DC/Admit/Observation/Transfer Diagnosis at time of Disposition: COPD exacerbation - Discharge Dispostion Condition at time of disposition: Stable Decision to Admit order: Yes - Referrals Referrals: Peter Lopez MD [Primary Care Provider] - - Patient Instructions - Post Discharge Activity
[2018-06-22 17:50] LABS: BASO % 0.6 % (0-2.0); EOS % 2.5 % (0-4.5); HEMATOCRIT 41.5 % (32.4-45.2); HEMOGLOBIN 14.3 GM/dL (10.7-15.3); LYMPH % 25.8 % (8-40); MCH 31.6 pg (25.7-33.7); MCHC 34.5 g/dl (32.0-36.0); MEAN CELL VOLUME 91.7 fl (80-96); MEAN PLT VOLUME 8.5 fl (7.5-11.1); NEUT % 65.1 % (42.8-82.8); PLATELET COUNT 247 K/MM3 (134-434); RBC 4.53 M/mm3 (3.60-5.2); RDW 13.8 % (11.6-15.6); WHITE BLOOD COUNT 12.4 K/mm3 (4.0-10.0)
[2018-06-22 18:14] LABS: ALBUMIN 3.3 g/dl (3.4-5.0); ALK PHOS 78 U/L (45-117); ANION GAP 6 MMOL/L (8-16); BILIRUBIN,TOTAL 0.4 mg/dL (0.2-1); BLOOD UREA NITROGEN 10 mg/dL (7-18); CALCIUM 8.4 mg/dL (8.5-10.1); CHLORIDE 107 mmol/L (98-107); CO2 26 mmol/L (21-32); CREATININE 0.8 mg/dL (0.55-1.3); GLUCOSE,RANDOM 162 mg/dL (74-106); N-TERMINAL BNP 187.2 pg/ml (5-125); POTASSIUM 3.8 mmol/L (3.5-5.1); SGOT/AST 12 U/L (15-37); SGPT/ALT 26 U/L (13-61); SODIUM 139 mmol/L (136-145)
[2018-06-22 18:16] LABS: VENOUS PC02 39.2 mmHg (41-51); VENOUS PH 7.39 (7.31-7.41); VENOUS PO2 45.1 mmHg (30-40)
[2018-06-22 18:17] LABS: EPI CELLS 6.2 /HPF (0-5); HYALINE CASTS 1 /hpf (0-8); PH,URINE 6.5 (5.0-8.0); URINE APPEARANCE CLEAR; URINE BACTERIA 381.042 /hpf (NEGATIVE); URINE BILIRUBIN NEGATIVE (<2.0 mg/dL); URINE COLOR YELLOW; URINE GLUCOSE (UA) NEGATIVE (NEGATIVE); URINE KETONE NEGATIVE (NEGATIVE); URINE LEUK ESTERASE 2+ (NEGATIVE); URINE NITRITE NEGATIVE (NEGATIVE); URINE PROTEIN NEGATIVE (NEGATIVE); URINE RBC 5 /hpf (0-4); URINE UROBILINOGEN 0.2 mg/dL (0.2-1.0); URINE WBC 13 /hpf (0-5)
[2018-06-22] MEDS ORDERED: methylPREDNISolone NA SUCC 125 MG/2 ML VIAL IVPB ONE (19:44)
[2018-06-22] MEDS ORDERED: AZITHROMYCIN 250 MG TABLET PO ONE (19:44)
--- NOTE | 2018-06-22 19:49 | HP ---
Admitting History and Physical - Primary Care Physician PCP: Peter Lopez - Admission Chief Complaint: COPD History of Present Illness: this is a 53 y/o f with hx of DM, DL, COPD, and HTN presented to the hospital for worsening SOB that start yesterday and has been worsening. patient stated that she has fever and chills with her SOB and cough, she stated that this was not the first time she has this but since she didnt improve decided to come to the hospital for further evaluation History Source: Patient Limitations to Obtaining History: No Limitations - Past Medical History Pulmonary: Yes: Asthma ...LMP: 10/21/13 - Past Surgical History Past Surgical History: Yes: None - Smoking History Smoking history: Never smoked Have you smoked in the past 12 months: Yes Aproximately how many cigarettes per day: 6 If you are a former smoker, when did you quit?: 04/2015 - Alcohol/Substance Use Hx Alcohol Use: No Home Medications - Allergies Allergies/Adverse Reactions: Allergies Allergy/AdvReac Type Severity Reaction Status Date / Time levofloxacin [From Levaquin] Allergy Rash Verified 06/22/18 15:31 - Home Medications Home Medications: Ambulatory Orders Penicillin V Potassium [Pen Vee K] 500 mg PO TID #21 tablet 07/27/11 Enalapril Maleate [Vasotec -] 10 mg PO DAILY 08/04/17 Review of Systems - Review of Systems Constitutional: reports: Chills, Fever, Malaise, Weakness Eyes: reports: No Symptoms HENT: reports: No Symptoms Neck: reports: No Symptoms Cardiovascular: reports: No Symptoms Respiratory: reports: Cough, Exercise Intolerance, SOB, SOB on Exertion, Wheezing Gastrointestinal: reports: No Symptoms Genitourinary: reports: No Symptoms Breasts: reports: No Symptoms Reported Musculoskeletal: reports: No Symptoms Integumentary: reports: No Symptoms Neurological: reports: No Symptoms Endocrine: reports: No Symptoms Hematology/Lymphatic: reports: No Symptoms Psychiatric: reports: No Symptoms Physical Examination Vital Signs: Vital Signs Temperature 98.3 F 06/22/18 19:12 Pulse Rate 88 06/22/18 19:12 Respiratory Rate 18 06/22/18 19:12 Blood Pressure 133/54 L 06/22/18 19:12 O2 Sat by Pulse Oximetry (%) 98 06/22/18 19:12 Constitutional: Yes: Well Nourished, No Distress, Calm, Obese Eyes: Yes: WNL, Conjunctiva Clear, EOM Intact HENT: Yes: WNL, Atraumatic, Normocephalic Neck: Yes: WNL, Supple, Trachea Midline Cardiovascular: Yes: WNL, Regular Rate and Rhythm Respiratory: Yes: Cough, Rhonchi, SOB, SOB on Exertion, Wheezes Gastrointestinal: Yes: WNL, Normal Bowel Sounds, Soft, Abdomen, Obese Musculoskeletal: Yes: WNL Extremities: Yes: WNL Edema: No Peripheral Pulses WNL: Yes Integumentary: Yes: WNL Neurological: Yes: WNL, Alert, Oriented ...Motor Strength: WNL Psychiatric: Yes: WNL, Alert, Oriented Labs: CBC, BMP 06/22/18 17:33 06/22/18 17:33 Imaging - Results Chest X-ray: Image Reviewed EKG: Image Reviewed Problem List - Problems (1) Diabetes type 2, controlled Assessment/Plan: insulin sliding scale Code(s): E11.9 - TYPE 2 DIABETES MELLITUS WITHOUT COMPLICATIONS Qualifiers: Diabetes mellitus fpc insulin use: without fpc use Diabetes mellitus complication status: without complication Qualified Code(s): E11.9 - Type 2 diabetes mellitus without complications (2) Obesity, Class III, BMI 40-49.9 (morbid obesity) Assessment/Plan: diet and life style modification advised low caloric, diabetic, low cholesterol Code(s): E66.01 - MORBID (SEVERE) OBESITY DUE TO EXCESS CALORIES (3) HTN (hypertension), benign Assessment/Plan: enalapril 10mg daily Code(s): I10 - ESSENTIAL (PRIMARY) HYPERTENSION (4) Dyslipidemia (high LDL; low HDL) Assessment/Plan: atrovastatin 40mg daily obtain LDL obtain thyroid function Code(s): E78.5 - HYPERLIPIDEMIA, UNSPECIFIED (5) COPD exacerbation Assessment/Plan: admit patient to med-surg duoneb q4hrs prn montelukast 10mg hs prednisone 40mg daily azithromycin 250mg daily consult pulmonary loratidine 10mg for post nasal drip Code(s): J44.1 - CHRONIC OBSTRUCTIVE PULMONARY DISEASE W (ACUTE) EXACERBATION (6) Upper respiratory infection Assessment/Plan: bronchitis start patient on azithromycin 250mg daily Code(s): J06.9 - ACUTE UPPER RESPIRATORY INFECTION, UNSPECIFIED Qualifiers: URI type: acute laryngitis Qualified Code(s): J04.0 - Acute laryngitis (7) DVT prophylaxis Assessment/Plan: enoxaparin 40mg daily GI prophylaxis with pentaprazole 40mg daily Code(s): [id number] -
[2018-06-22] MEDS: ALBUTEROL SO4 2.5/IPRATROPIUM 0.5 INH SOL 3 ML VIAL.NEB. NEB PRN (20:10)
[2018-06-22] MEDS ORDERED: AZITHROMYCIN 250 MG TABLET ONE (20:19)
[2018-06-22] MEDS ORDERED: methylPREDNISolone NA SUCC 125 MG/2 ML VIAL ONE (20:19)
[2018-06-22] MEDS ORDERED: MONTELUKAST NA 5 MG TAB.CHEW PO SCH (22:00)
[2018-06-22] MEDS: MONTELUKAST NA 10 MG TABLET PO SCH (23:53)
[2018-06-23] MEDS: ALBUTEROL SO4 2.5/IPRATROPIUM 0.5 INH SOL 3 ML VIAL.NEB. NEB PRN ×2 (03:32→07:27)
[2018-06-23] MEDS ORDERED: hydrALAZINE HCL 10 MG TABLET PO ONE (03:46)
[2018-06-23] MEDS: INSULIN SLIDING SCALE (NOVOLOG) 1 VIAL SQ SCH ×3 (06:05→16:55)
[2018-06-23 07:36] LABS: BASO % 0.2 % (0-2.0); HEMATOCRIT 40.2 % (32.4-45.2); HEMOGLOBIN 14.2 GM/dL (10.7-15.3); LYMPH % 8.7 % (8-40); MCH 32.2 pg (25.7-33.7); MCHC 35.2 g/dl (32.0-36.0); MEAN CELL VOLUME 91.4 fl (80-96); MONO % 1.4 % (3.8-10.2); NEUT % 89.7 % (42.8-82.8); PLATELET COUNT 239 K/MM3 (134-434); RDW 13.6 % (11.6-15.6); WHITE BLOOD COUNT 14.6 K/mm3 (4.0-10.0)
[2018-06-23 07:59] LABS: ALBUMIN 3.2 g/dl (3.4-5.0); ALK PHOS 82 U/L (45-117); ANION GAP 8 MMOL/L (8-16); BILIRUBIN,TOTAL 0.4 mg/dL (0.2-1); BLOOD UREA NITROGEN 10 mg/dL (7-18); CALCIUM 8.6 mg/dL (8.5-10.1); CHLORIDE 108 mmol/L (98-107); CO2 21 mmol/L (21-32); CREATININE 0.7 mg/dL (0.55-1.3); GLUCOSE,RANDOM 299 mg/dL (74-106); MAGNESIUM 2.4 mg/dL (1.8-2.4); PHOSPHOROUS 2.4 mg/dL (2.5-4.9); POTASSIUM 4.1 mmol/L (3.5-5.1); SGOT/AST 7 U/L (15-37); SGPT/ALT 22 U/L (13-61); SODIUM 136 mmol/L (136-145)
[2018-06-23] MEDS: LORATADINE 10 MG TABLET PO SCH (09:12)
[2018-06-23] MEDS: PANTOPRAZOLE 40 MG TABLET (FP) PO SCH (09:12)
[2018-06-23] MEDS: ENOXAPARIN NA (PORCINE) 40 MG/0.4 ML DISP.SYRIN SQ SCH (09:12)
[2018-06-23] MEDS ORDERED: ENALAPRIL MALEATE 10 MG TABLET (FP) PO SCH (10:00)
[2018-06-23] MEDS ORDERED: predniSONE 20 MG TABLET (UD) PO SCH (10:00)
--- NOTE | 2018-06-23 10:12 | EKG ---
Test Reason : Blood Pressure : / mmHG Vent. Rate : 092 BPM Atrial Rate : 092 BPM P-R Int : 190 ms QRS Dur : 086 ms QT Int : 404 ms P-R-T Axes : 039 019 007 degrees QTc Int : 499 ms NORMAL SINUS RHYTHM PROLONGED QT ABNORMAL ECG WHEN COMPARED WITH ECG OF 04-AUG-2017 11:37, T WAVE VARIATION Confirmed by MERCY CR MD ([id number]) on 06/23/2018 10:12:26 AM Referred By: Confirmed By:MERCY CR MD
[2018-06-23] MEDS ORDERED: INSULIN (NOVOLOG) ASPART 100 UNITS/ML 10ML VIAL ONE (10:37)
--- NOTE | 2018-06-23 10:58 | PN ---
Progress Note (short form) - Note Progress Note: pt seen/ examined chart reviewed sitting in bed cough + wheezing afebrile Vital Signs Temp 98.1 F 06/23/18 05:57 Pulse 88 06/23/18 05:57 Resp 18 06/23/18 05:57 BP 134/65 06/23/18 05:57 Pulse Ox 94 L 06/23/18 03:29 Intake & Output 06/22/18 06/22/18 06/23/18 11:59 23:59 11:59 Intake Total 160 Balance 160 Weight 310 lb Intake: Oral 160 Other: Voiding Method Toilet Height 5 ft 4 in 5 ft 4 in Body Mass Index (BMI) 53.1 Weight Measurement Method Standing Scale Weight Measurement Method Est/Stated by Patient Active Medications Albuterol/Ipratropium (Duoneb -) 1 amp NEB Q4H PRN PRN Reason: SHORTNESS OF BREATH Last Admin: 06/23/18 07:27 Dose: 1 amp Enalapril Maleate (Vasotec -) 10 mg PO DAILY [facility] Last Admin: 06/23/18 09:12 Dose: 10 mg Enoxaparin Sodium (Lovenox -) 40 mg SQ DAILY [facility] Last Admin: 06/23/18 09:12 Dose: 40 mg Furosemide (Lasix -) 40 mg PO DAILY [facility] Azithromycin 500 mg/ Dextrose 250 mls @ 250 mls/hr IVPB DAILY [facility] Insulin Aspart (Novolog Vial Sliding Scale -) 1 vial SQ TIDAC [facility]; Protocol Last Admin: 06/23/18 06:05 Dose: 4 units Insulin Detemir (Levemir Vial) 10 units SQ HS [facility] Loratadine (Claritin -) 10 mg PO DAILY [facility] Last Admin: 06/23/18 09:12 Dose: 10 mg Methylprednisolone Sodium Succinate (Solu-Medrol -) 40 mg IVPUSH Q6H-IV DEEPALI Montelukast Sodium (Singulair -) 10 mg PO HS [facility] Last Admin: 06/22/18 23:53 Dose: 10 mg Nicotine (Nicoderm Patch -) 14 mg TD DAILY [facility] Pantoprazole Sodium (Protonix -) 40 mg PO DAILY [facility] Last Admin: 06/23/18 09:12 Dose: 40 mg CBC, BMP 06/23/18 06:45 06/23/18 06:45 cxr -- reviewed ekg -- noted physical exam alert and awake Morbidly obese S1 S2 RRR Lungs bilateral wheezes Abd- soft, NT no edema a/p copd exac smoker enlarge heart diabetes htn abnormal ekg Obesity Steroids-- change to solumedrol abx nebulizer treatment echo pulmonary/ cardiology consults nicotine patch smoking cessation counselling---provided monitor bgm add basal insulin will follow
[2018-06-23] MEDS: NICOTINE 14 MG/24 HOURS TOPICAL PATCH TD SCH (11:10)
[2018-06-23] MEDS: methylPREDNISolone NA SUCC 40 MG/1 ML VIAL IVPUSH SCH ×3 (11:10→21:25)
--- NOTE | 2018-06-23 11:54 | CON.CARD ---
Consult Consult Specialty:: Cardiology Referred by:: Peter Lopez MD Reason for Consultation:: Dyspnea, cough, wheezes - History of Present Illness Chief Complaint: Dyspnea, cough, wheezes History of Present Illness: COPD History of Present Illness: this is a 53 y/o f with hx of DM, Hyperlipidemia, COPD, and HTN presented to the hospital for worsening SOB, cough, wheeze, post-tussive chest discomfort triggered by URI and weather change. patient stated that she has subjective fever and chills with her SOB and cough, also orthopnea without PND, near or true syncope, palpitations. Feels improved with current regimen. - History Source History Provided By: Patient Limitations to Obtaining History: No Limitations - Past Medical History Pulmonary: Yes: Asthma ...LMP: 10/21/13 ...: No - Past Surgical History Past Surgical History: Yes: None - Alcohol/Substance Use Hx Alcohol Use: No - Smoking History Smoking history: Current every day smoker Have you smoked in the past 12 months: Yes Aproximately how many cigarettes per day: 6 If you are a former smoker, when did you quit?: 04/2015 Home Medications - Allergies Allergies/Adverse Reactions: Allergies Allergy/AdvReac Type Severity Reaction Status Date / Time levofloxacin [From Levaquin] Allergy Rash Verified 06/22/18 15:31 - Home Medications Home Medications: Ambulatory Orders Penicillin V Potassium [Pen Vee K] 500 mg PO TID #21 tablet 07/27/11 Enalapril Maleate [Vasotec -] 10 mg PO DAILY 08/04/17 Review of Systems - Review of Systems Respiratory: reports: Cough, Exercise Intolerance, SOB, Wheezing Vital Signs: Vital Signs Temperature 98.2 F 06/23/18 11:00 Pulse Rate 89 06/23/18 11:00 Respiratory Rate 20 06/23/18 11:00 Blood Pressure 155/96 06/23/18 11:00 O2 Sat by Pulse Oximetry (%) 95 06/23/18 10:00 Constitutional: Yes: No Distress, Calm Neck: Yes: Supple Respiratory: Yes: Regular, Cough, Diminished, Orthopnea, SOB on Exertion, Wheezes Gastrointestinal: Yes: Normal Bowel Sounds, Soft, Abdomen, Obese Cardiovascular: Yes: Regular Rate and Rhythm JVD: No Carotid Bruit: No Heart Sounds: Yes: S1, S2 Edema: No - Other Data Labs, Other Data: CBC, BMP 06/23/18 06:45 06/23/18 06:45 Troponin, BNP 06/22/18 17:33 Troponin I < 0.02 B-Natriuretic Peptide 187.2 H Troponin, BNP 06/22/18 17:33 Troponin I < 0.02 B-Natriuretic Peptide 187.2 H NSR @ [address]-T changes Imaging - Results Chest X-ray: Report Reviewed (NAD) Problem List - Problems (1) COPD exacerbation Code(s): J44.1 - CHRONIC OBSTRUCTIVE PULMONARY DISEASE W (ACUTE) EXACERBATION (2) Diabetes type 2, controlled Code(s): E11.9 - TYPE 2 DIABETES MELLITUS WITHOUT COMPLICATIONS Qualifiers: Diabetes mellitus brim 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 insulin use: without brim 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 use Diabetes mellitus complication status: without complication Qualified Code(s): E11.9 - Type 2 diabetes mellitus without complications (3) Dyslipidemia (high LDL; low HDL) Code(s): E78.5 - HYPERLIPIDEMIA, UNSPECIFIED (4) HTN (hypertension), benign Code(s): I10 - ESSENTIAL (PRIMARY) HYPERTENSION (5) Obesity, Class III, BMI 40-49.9 (morbid obesity) Code(s): E66.01 - MORBID (SEVERE) OBESITY DUE TO EXCESS CALORIES (6) Tobacco abuse disorder Code(s): Z72.0 - TOBACCO USE (7) Upper respiratory infection Code(s): J06.9 - ACUTE UPPER RESPIRATORY INFECTION, UNSPECIFIED Qualifiers: URI type: unspecified viral URI Qualified Code(s): J06.9 - Acute upper respiratory infection, unspecified Assessment/Plan 1. AE COPD 2. Smoker 3. Type 2 DM 4. Hypertension 5. Morbid obesity P:1. F/u echocardiogram for RVSP 2. BD, IV steroids, empiric abx course, smoking cessation, O2 as needed, Singulair 10 qd 3. Continue Vasotec 10 qd, Lipitor 40 qd 4. Outpatient PFTs and PSG 5. Thank you for consultative opportunity
--- NOTE | 2018-06-23 12:24 | CON.PULM ---
Consult Consult Specialty:: PULMONARY Referred by:: Dr Lopez Reason for Consultation:: COPD - History of Present Illness Chief Complaint: shortness of breath History of Present Illness: 53yo female with h/o HTN, DM, hyperlipidemia, COPD, smoker who was admitted with worsening shortness of breath x 3 days. Denies chest pain or palpitations. +cough productive of yellow sputum as well as wheezing. +sick contacts and she attributes her symptoms were triggered by the weather change. She is maintained at home on Anoro and albuterol. Smokes about 8-9 cigarettes/day. - History Source History Provided By: Patient, Medical Record Limitations to Obtaining History: No Limitations - Past Medical History Cardio/Vascular: Yes: HTN Pulmonary: Yes: Asthma ...LMP: 10/21/13 ...: No - Past Surgical History Past Surgical History: Yes: None - Alcohol/Substance Use Hx Alcohol Use: No - Smoking History Smoking history: Current every day smoker Have you smoked in the past 12 months: Yes Aproximately how many cigarettes per day: 6 If you are a former smoker, when did you quit?: 04/2015 Home Medications - Allergies Allergies/Adverse Reactions: Allergies Allergy/AdvReac Type Severity Reaction Status Date / Time levofloxacin [From Levaquin] Allergy Rash Verified 06/22/18 15:31 - Home Medications Home Medications: Ambulatory Orders Penicillin V Potassium [Pen Vee K] 500 mg PO TID #21 tablet 07/27/11 Enalapril Maleate [Vasotec -] 10 mg PO DAILY 08/04/17 Review of Systems - Review of Systems Constitutional: reports: Weakness. denies: Chills, Fever Eyes: denies: Recent Change in Vision HENT: reports: Nasal Congestion. denies: Throat Pain Neck: denies: Stiffness, Tenderness Cardiovascular: reports: Shortness of Breath. denies: Chest Pain, Edema, Palpitations Respiratory: reports: Cough, Exercise Intolerance, SOB on Exertion, Wheezing. denies: Hemoptysis Gastrointestinal: denies: Abdominal Pain, Nausea, Vomiting Genitourinary: denies: Dysuria, Hematuria Neurological: denies: Dizziness, Headache Endocrine: denies: Unexplained Weight Loss Physical Exam Vital Sings: Vital Signs Temperature 98.2 F 06/23/18 11:00 Pulse Rate 89 06/23/18 11:00 Respiratory Rate 20 03/25/19 11:00 Blood Pressure 155/96 03/25/19 11:00 O2 Sat by Pulse Oximetry (%) 95 06/23/18 10:00 Constitutional: Yes: Calm Eyes: Yes: Conjunctiva Clear, EOM Intact HENT: Yes: Atraumatic, Normocephalic Neck: Yes: Supple, Trachea Midline Cardiovascular: Yes: Regular Rate and Rhythm Respiratory: Yes: Rhonchi, Wheezes ...Clubbing: No Gastrointestinal: Yes: Normal Bowel Sounds, Soft. No: Tenderness Edema: No Peripheral Pulses WNL: Yes Neurological: Yes: Alert, Oriented Labs: CBC, BMP 06/23/18 06:45 06/23/18 06:45 Imaging - Results Chest X-ray: Report Reviewed, Image Reviewed (no infiltrates) Problem List - Problems (1) COPD exacerbation Code(s): J44.1 - CHRONIC OBSTRUCTIVE PULMONARY DISEASE W (ACUTE) EXACERBATION (2) Diabetes type 2, controlled Code(s): E11.9 - TYPE 2 DIABETES MELLITUS WITHOUT COMPLICATIONS Qualifiers: Diabetes mellitus fdc insulin use: without terminal system operator use Diabetes mellitus complication status: without complication Qualified Code(s): E11.9 - Type 2 diabetes mellitus without complications (3) Dyslipidemia (high LDL; low HDL) Code(s): E78.5 - HYPERLIPIDEMIA, UNSPECIFIED (4) HTN (hypertension), benign Code(s): I10 - ESSENTIAL (PRIMARY) HYPERTENSION (5) Obesity, Class III, BMI 40-49.9 (morbid obesity) Code(s): E66.01 - MORBID (SEVERE) OBESITY DUE TO EXCESS CALORIES Assessment/Plan Acute COPD Exacerbation Acute Bronchitis HTN DM Hyperlipidemia Smoker - agree with IV medrol - inhaled bronchodilators - O2 to keep SpO2 >90% - empiric azithromycin - smoking cessation discussed - will need outpt PFTs and screening CT chest - DVT prophylaxis Thank you for this consult Denys Gregg MD
[2018-06-23] MEDS ORDERED: ALBUTEROL SO4 0.083% IH SOL 2.5 MG/3 ML VIAL.NEB. NEB PRN (12:25)
[2018-06-23] MEDS: AZITHROMYCIN IVPB 500 MG/250 ML BAG IVPB SCH (13:04)
[2018-06-23] MEDS: FUROSEMIDE 40 MG TABLET (FP) PO SCH (13:05)
[2018-06-23 13:32] LABS: PLATELET ESTIMATE ADEQUATE
--- NOTE | 2018-06-23 18:15 | HOSP ---
Subjective - Review of Symptoms Events since last encounter: Informed by Nursing staff that BP uncontrolled. 6:05pm BP 159/71, HR 98bpm. Pt has no complaints Increase enalapril to 20mg in the morning and start norvasc 5mg q6pm for better BP control. Physical Examination Vital Signs: Vital Signs Temperature 98.1 F 06/23/18 13:38 Pulse Rate 86 06/23/18 13:38 Respiratory Rate 20 06/23/18 13:38 Blood Pressure 148/80 06/23/18 13:38 O2 Sat by Pulse Oximetry (%) 95 06/23/18 10:00 Labs: CBC, BMP 06/23/18 06:45 06/23/18 06:45
[2018-06-23] MEDS: amLODIPine BESYLATE 5 MG TABLET (FP) PO SCH (18:20)
[2018-06-23] MEDS ORDERED: ACETAMINOPHEN 500 MG TABLET (FP) PO PRN (18:33)
[2018-06-23] MEDS: FLUTICASONE PROP 0.05% 16 GM NASAL SPRAY NS SCH (20:45)
[2018-06-23] MEDS: ALBUTEROL SO4 2.5/IPRATROPIUM 0.5 INH SOL 3 ML VIAL.NEB. NEB SCH (21:00)
[2018-06-23] MEDS: INSULIN (LEVEMIR) 100 UNITS/ML UNITS SQ SCH (21:25)
[2018-06-23] MEDS: MONTELUKAST NA 10 MG TABLET PO SCH (21:25)
[2018-06-23] MEDS: guaiFENesin 600 MG TABLET.ER (FP) PO SCH (21:25)
[2018-06-24] MEDS: methylPREDNISolone NA SUCC 40 MG/1 ML VIAL IVPUSH SCH ×3 (03:13→17:59)
[2018-06-24] MEDS: INSULIN SLIDING SCALE (NOVOLOG) 1 VIAL SQ SCH ×3 (06:26→18:00)
[2018-06-24] MEDS: ALBUTEROL SO4 2.5/IPRATROPIUM 0.5 INH SOL 3 ML VIAL.NEB. NEB SCH ×4 (07:35→19:50)
[2018-06-24 08:20] LABS: BASO % 0.1 % (0-2.0); HEMATOCRIT 42.8 % (32.4-45.2); HEMOGLOBIN 14.4 GM/dL (10.7-15.3); LYMPH % 8.3 % (8-40); MCH 30.8 pg (25.7-33.7); MCHC 33.7 g/dl (32.0-36.0); MEAN CELL VOLUME 91.4 fl (80-96); MEAN PLT VOLUME 8.9 fl (7.5-11.1); MONO % 3.6 % (3.8-10.2); PLATELET COUNT 274 K/MM3 (134-434); RBC 4.69 M/mm3 (3.60-5.2); RDW 13.7 % (11.6-15.6); WHITE BLOOD COUNT 20.2 K/mm3 (4.0-10.0)
[2018-06-24 09:00] LABS: ALBUMIN 3.5 g/dl (3.4-5.0); ALK PHOS 92 U/L (45-117); ANION GAP 11 MMOL/L (8-16); BILIRUBIN,TOTAL 0.4 mg/dL (0.2-1); BLOOD UREA NITROGEN 14 mg/dL (7-18); CALCIUM 8.6 mg/dL (8.5-10.1); CHLORIDE 103 mmol/L (98-107); CHOLESTEROL 154 mg/dL (50-200); CO2 23 mmol/L (21-32); HDL CHOLESTEROL 64 mg/dL (40-60); SGOT/AST 8 U/L (15-37); SGPT/ALT 22 U/L (13-61); SODIUM 137 mmol/L (136-145); TOT PROT 7.4 g/dl (6.4-8.2); TRIGLYCERIDES 102 mg/dL (0-150)
[2018-06-24] MEDS ORDERED: PT OWN MED DRAWER 7, Y5N ONE (09:02)
[2018-06-24 09:07] LABS: GLUCOSE,RANDOM 317 mg/dL (74-106)
[2018-06-24] MEDS: PANTOPRAZOLE 40 MG TABLET (FP) PO SCH (10:00)
[2018-06-24] MEDS: guaiFENesin 600 MG TABLET.ER (FP) PO SCH ×2 (10:00→21:52)
[2018-06-24] MEDS: NICOTINE 14 MG/24 HOURS TOPICAL PATCH TD SCH (10:00)
[2018-06-24] MEDS: LORATADINE 10 MG TABLET PO SCH (10:01)
[2018-06-24] MEDS: FUROSEMIDE 40 MG TABLET (FP) PO SCH (10:01)
[2018-06-24] MEDS: AZITHROMYCIN IVPB 500 MG/250 ML BAG IVPB SCH (10:01)
[2018-06-24] MEDS: ENOXAPARIN NA (PORCINE) 40 MG/0.4 ML DISP.SYRIN SQ SCH (10:01)
[2018-06-24] MEDS: amLODIPine BESYLATE 5 MG TABLET (FP) PO SCH (10:05)
[2018-06-24] MEDS: ENALAPRIL MALEATE 10 MG TABLET (FP) PO SCH (10:05)
[2018-06-24] MEDS: FLUTICASONE PROP 0.05% 16 GM NASAL SPRAY NS SCH (10:07)
[2018-06-24 11:02] LABS: ANISOCYTOSIS 0; HELMET CELLS 0; HOWELL-JOLLY BODIES 0; MACROCYTOSIS 0; OVALOCYTE 0; PLATELET ESTIMATE NORMAL; ROULEAU 0; SICKELED CELLS 0; TARGET CELLS 0; TEAR DROP CELLS 0; TOXIC GRANULATION 0
--- NOTE | 2018-06-24 11:33 | PN ---
Progress Note (short form) - Note Progress Note: PULMONARY Feels better, breathing, cough and wheezing improving. Vital Signs Period Temp Pulse Resp BP Sys/Bajwa Pulse Ox Last 24 Hr 98 F-98.1 F 86-98 18-20 121-155/61-97 98 Gen: tachypneic with exertion Heart: RRR Lung: better air entry Abd: soft, nontender Ext: no edema CBC, BMP 06/24/18 07:44 06/24/18 07:44 Active Medications Acetaminophen (Tylenol -) 500 mg PO Q6H PRN PRN Reason: HEADACHE Last Admin: 06/23/18 19:49 Dose: 500 mg Albuterol Sulfate (Ventolin 0.083% Nebulizer Soln -) 1 amp NEB Q4H PRN PRN Reason: SHORT OF BREATH/WHEEZING Albuterol/Ipratropium (Duoneb -) 1 amp NEB RQID [facility] Last Admin: 06/24/18 07:35 Dose: 1 amp Amlodipine Besylate (Norvasc -) 5 mg PO DAILY [facility] Last Admin: 06/24/18 10:05 Dose: 5 mg Enalapril Maleate (Vasotec -) 20 mg PO DAILY [facility] Last Admin: 06/24/18 10:05 Dose: 20 mg Enoxaparin Sodium (Lovenox -) 40 mg SQ DAILY [facility] Last Admin: 06/24/18 10:01 Dose: 40 mg Fluticasone Propionate (Flonase -) 2 spray NS DAILY [facility] Last Admin: 06/24/18 10:07 Dose: 2 sprays Furosemide (Lasix -) 40 mg PO DAILY [facility] Last Admin: 06/24/18 10:01 Dose: 40 mg Guaifenesin (Mucinex -) 1,200 mg PO BID [facility] Stop: 06/25/18 22:00 Last Admin: 06/24/18 10:00 Dose: 1,200 mg Azithromycin (Zithromax 500mg Ivpb (Pre-Docked)) 500 mg in 250 mls @ 250 mls/ hr IVPB DAILY [facility] Last Admin: 06/24/18 10:01 Dose: 250 mls/hr Insulin Aspart (Novolog Vial Sliding Scale -) 1 vial SQ TIDAC [facility]; Protocol Last Admin: 06/24/18 06:26 Dose: 6 units Insulin Detemir (Levemir Vial) 10 units SQ [facility] Last Admin: 06/23/18 21:25 Dose: 10 units Loratadine (Claritin -) 10 mg PO DAILY [facility] Last Admin: 06/24/18 10:01 Dose: 10 mg Methylprednisolone Sodium Succinate (Solu-Medrol -) 40 mg IVPUSH Q6H-IV [facility] Last Admin: 06/24/18 10:00 Dose: 40 mg Montelukast Sodium (Singulair -) 10 mg PO HS [facility] Last Admin: 06/23/18 21:25 Dose: 10 mg Nicotine (Nicoderm Patch -) 14 mg TD DAILY [facility] Last Admin: 06/24/18 10:00 Dose: 14 mg Pantoprazole Sodium (Protonix -) 40 mg PO DAILY [facility] Last Admin: 06/24/18 10:00 Dose: 40 mg A/P Acute COPD Exacerbation Acute Bronchitis HTN DM Hyperlipidemia Smoker - will decrease medrol to q8h - if continues to improve, can likely change steroids to PO prednisone 40mg in AM - inhaled bronchodilators - O2 to keep SpO2 >90% - continue azithromycin - smoking cessation discussed - will need outpt PFTs and screening CT chest - DVT prophylaxis Problem List - Problems (1) COPD exacerbation Code(s): J44.1 - CHRONIC OBSTRUCTIVE PULMONARY DISEASE W (ACUTE) EXACERBATION (2) Diabetes type 2, controlled Code(s): E11.9 - TYPE 2 DIABETES MELLITUS WITHOUT COMPLICATIONS Qualifiers: Diabetes mellitus rat 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
[2018-06-24] MEDS ORDERED: INSULIN (NOVOLOG) ASPART 100 UNITS/ML 10ML VIAL ONE (11:55)
--- NOTE | 2018-06-24 12:07 | PN ---
Progress Note (short form) - Note Progress Note: no complaints feels better Vital Signs - 24 hr 06/23/18 06/23/18 06/23/18 13:38 18:00 21:00 Temperature 98.1 F 98.0 F Pulse Rate 86 98 H Respiratory 20 20 Rate Blood Pressure 148/80 155/97 O2 Sat by Pulse 98 Oximetry (%) 06/23/18 06/24/18 22:00 05:34 Temperature 98 F 98.1 F Pulse Rate 94 H 89 Respiratory 18 18 Rate Blood Pressure 153/74 121/61 O2 Sat by Pulse Oximetry (%) Current Medications Generic Name Dose Route Start Last Admin Trade Name Freq PRN Reason Stop Dose Admin Acetaminophen 500 mg 06/23/18 18:33 06/23/18 19:49 Tylenol - PO 500 mg Q6H PRN Administration HEADACHE Albuterol Sulfate 1 amp 06/23/18 12:25 Ventolin 0.083% Nebulizer Soln - NEB Q4H PRN SHORT OF BREATH/WHEEZING Albuterol/Ipratropium 1 amp 06/23/18 16:00 06/24/18 11:40 Duoneb - NEB 1 amp RQID [facility] Administration Amlodipine Besylate 5 mg 06/23/18 18:15 06/24/18 10:05 Norvasc - PO 5 mg DAILY [facility] Administration Enalapril Maleate 20 mg 06/24/18 10:00 06/24/18 10:05 Vasotec - PO 20 mg DAILY [facility] Administration Enoxaparin Sodium 40 mg 06/23/18 10:00 06/24/18 10:01 Lovenox - SQ 40 mg DAILY [facility] Administration Fluticasone Propionate 2 spray 06/23/18 19:45 06/24/18 10:07 Flonase - NS 2 sprays DAILY [facility] Administration Furosemide 40 mg 06/23/18 11:00 06/24/18 10:01 Lasix - PO 40 mg DAILY [facility] Administration Guaifenesin 1,200 mg 06/23/18 22:00 06/24/18 10:00 Mucinex - PO 06/25/18 22:00 1,200 mg BID [facility] Administration Azithromycin 500 mg in 250 mls @ 250 mls/hr 06/23/18 11:00 06/24/18 10:01 Zithromax 500mg Ivpb (Pre-Docked) IVPB 250 mls/hr DAILY [facility] Administration Insulin Aspart 1 vial 06/23/18 07:00 06/24/18 11:56 Novolog Vial Sliding Scale - SQ 8 units TIDAC [facility] Administration Protocol Insulin Detemir 10 units 06/23/18 22:00 06/23/18 21:25 Levemir Vial SQ 10 units HS [facility] Administration Loratadine 10 mg 06/23/18 10:00 06/24/18 10:01 Claritin - PO 10 mg DAILY [facility] Administration Methylprednisolone Sodium Succinate 40 mg 06/24/18 18:00 Solu-Medrol - IVPUSH Q8H-IV [facility] Montelukast Sodium 10 mg 06/22/18 23:00 06/23/18 21:25 Singulair - PO 10 mg HS [facility] Administration Nicotine 14 mg 06/23/18 11:00 06/24/18 10:00 Nicoderm Patch - TD 14 mg DAILY [facility] Administration Pantoprazole Sodium 40 mg 06/23/18 10:00 06/24/18 10:00 Protonix - PO 40 mg DAILY [facility] Administration Laboratory Results - last 24 hr 06/23/18 06/23/18 06/23/18 06:45 16:19 21:23 WBC RBC Hgb Hct MCV MCH MCHC RDW Plt Count 239 MPV Absolute Neuts (auto) Neutrophils % Neutrophils % (Manual) Band Neutrophils % Lymphocytes % Lymphocytes % (Manual) Monocytes % Monocytes % (Manual) Eosinophils % Eosinophils % (Manual) Basophils % Basophils % (Manual) Myelocytes % (Man) Promyelocytes % (Man) Blast Cells % (Manual) Nucleated RBC % Metamyelocytes Hypochromia Toxic Granulation Dohle Bodies Platelet Estimate Adequate Platelet Comment No clumping noted Polychromasia Poikilocytosis Basophilic Stippling Anisocytosis Microcytosis Macrocytosis Spherocytes Sickle Cells Target Cells Tear Drop Cells Ovalocytes Stomatocytes Helmet Cells [place] Bodies [place] Rings [place] Cells Acanthocytes (Spur) Rouleaux Fragmented RBCs Schistocytes Sodium Potassium Chloride Carbon Dioxide Anion Gap BUN Creatinine Creat Clearance w eGFR POC Glucometer 329 325 Random Glucose Hemoglobin A1c % Calcium Total Bilirubin AST ALT Alkaline Phosphatase Total Protein Albumin Triglycerides Cholesterol Total LDL Cholesterol HDL Cholesterol TSH 06/24/18 06/24/18 06/24/18 06:21 07:44 07:44 WBC 20.2 H RBC 4.69 Hgb 14.4 Hct 42.8 MCV 91.4 MCH 30.8 MCHC 33.7 RDW 13.7 Plt Count 274 MPV 8.9 Absolute Neuts (auto) 17.7 H Neutrophils % 88.0 H Neutrophils % (Manual) 89.2 H Band Neutrophils % 0.0 Lymphocytes % 8.3 Lymphocytes % (Manual) 8.8 Monocytes % 3.6 L D Monocytes % (Manual) 2 L Eosinophils % 0.0 Eosinophils % (Manual) 0.0 Basophils % 0.1 Basophils % (Manual) 0.0 Myelocytes % (Man) 0 Promyelocytes % (Man) 0 Blast Cells % (Manual) 0 Nucleated RBC % 0 Metamyelocytes 0 Hypochromia 0 Toxic Granulation 0 Dohle Bodies 0 Platelet Estimate Normal Platelet Comment Polychromasia 0 Poikilocytosis 0 Basophilic Stippling 0 Anisocytosis 0 Microcytosis 0 Macrocytosis 0 Spherocytes 0 Sickle Cells 0 Target Cells 0 Tear Drop Cells 0 Ovalocytes 0 Stomatocytes 0 Helmet Cells 0 [place] Bodies 0 [place] Rings 0 [place] Cells 0 Acanthocytes (Spur) 0 Rouleaux 0 Fragmented RBCs 0 Schistocytes 0 Sodium 137 Potassium 4.0 Chloride 103 Carbon Dioxide 23 Anion Gap 11 BUN 14 Creatinine 1.0 Creat Clearance w eGFR 58.00 POC Glucometer 321 Random Glucose 317 H* Hemoglobin A1c % Calcium 8.6 Total Bilirubin 0.4 AST 8 L ALT 22 Alkaline Phosphatase 92 Total Protein 7.4 Albumin 3.5 Triglycerides 102 Cholesterol 154 Total LDL Cholesterol 72 HDL Cholesterol 64 H TSH 0.51 06/24/18 06/24/18 07:48 11:46 WBC RBC Hgb Hct MCV MCH MCHC RDW Plt Count MPV Absolute Neuts (auto) Neutrophils % Neutrophils % (Manual) Band Neutrophils % Lymphocytes % Lymphocytes % (Manual) Monocytes % Monocytes % (Manual) Eosinophils % Eosinophils % (Manual) Basophils % Basophils % (Manual) Myelocytes % (Man) Promyelocytes % (Man) Blast Cells % (Manual) Nucleated RBC % Metamyelocytes Hypochromia Toxic Granulation Dohle Bodies Platelet Estimate Platelet Comment Polychromasia Poikilocytosis Basophilic Stippling Anisocytosis Microcytosis Macrocytosis Spherocytes Sickle Cells Target Cells Tear Drop Cells Ovalocytes Stomatocytes Helmet Cells [place] Bodies [place] Rings [place] Cells Acanthocytes (Spur) Rouleaux Fragmented RBCs Schistocytes Sodium Potassium Chloride Carbon Dioxide Anion Gap BUN Creatinine Creat Clearance w eGFR POC Glucometer 399 Random Glucose Hemoglobin A1c % 8.5 H Calcium Total Bilirubin AST ALT Alkaline Phosphatase Total Protein Albumin Triglycerides Cholesterol Total LDL Cholesterol HDL Cholesterol TSH S1 S2 RRR Lungs ronchi less Abd- soft, NT no edema PLAN IV solumedrol Pulmonary eval noted Possible Prednisone in AM iv antibiotics dc planning in AM Problem List - Problems (1) COPD exacerbation Code(s): J44.1 - CHRONIC OBSTRUCTIVE PULMONARY DISEASE W (ACUTE) EXACERBATION (2) Diabetes type 2, controlled Code(s): E11.9 - TYPE 2 DIABETES MELLITUS WITHOUT COMPLICATIONS Qualifiers: Diabetes mellitus shelter insulin use: without shelter use Diabetes mellitus complication status: without complication Qualified Code(s): E11.9 - Type 2 diabetes mellitus without complications (3) Dyslipidemia (high LDL; low HDL) Code(s): E78.5 - HYPERLIPIDEMIA, UNSPECIFIED (4) HTN (hypertension), benign Code(s): I10 - ESSENTIAL (PRIMARY) HYPERTENSION (5) Obesity, Class III, BMI 40-49.9 (morbid obesity) Code(s): E66.01 - MORBID (SEVERE) OBESITY DUE TO EXCESS CALORIES
--- NOTE | 2018-06-24 14:51 | ECHO ---
Version: 1 Name: CHARLOTTE HICKEY Exam: Adult Echocardiogram Study Date: 06/24/2018, 9:13 AM Age: 53 Years MMode/2D Measurements & Calculations IVSd: 0.94 cm LVIDs: 3.2 cm LVIDd: 4.8 cm LVPWd: 0.89 cm LAV (MOD-bp): 36.9 ml LVOT diam: 2.00 cm Ao root diam: 2.38 cm LA dimension: 3.5 cm Doppler Measurements & Calculations MV E max cristhian: 104.0 cm/sec Med E/e': 5.0 MV A max cristhian: 125.3 cm/sec Med Peak E' Cristhian: 21.0 cm/sec MV E/A: 0.83 Lat E/e': 6.4 Lat Peak E' Cristhian: 16.2 cm/sec Ao max P.9 mmHg Ao V2 max: 149.3 cm/sec Procedure A complete two-dimensional transthoracic echocardiogram was performed (2D, M-mode, Doppler and color flow Doppler). Left Ventricle The left ventricular size, thickness and function are normal. Ejection Fraction = 65%. E/A reversal consistent with but not diagnostic of poor LV compliance. The left ventricular wall motion is normal . Right Ventricle The right ventricle is normal in size and function. Atria Normal left and right atrial size and function. Mitral Valve There is mild mitral valve thickening. There is trace mitral regurgitation. Tricuspid Valve The tricuspid valve is normal. There is trace tricuspid regurgitation. There was insufficient TR det ected to calculate RV systolic pressure. Aortic Valve There is mild aortic valve thickening. Pulmonic Valve The pulmonic valve is not well visualized. Trace pulmonic valvular regurgitation. Great Vessels The aortic root is normal size. Pericardium/Pleura There is no pericardial effusion. There is no pleural effusion. Summary Statements The left ventricular size, thickness and function are normal Ejection Fraction = 65%. There is mild mitral valve thickening. There is trace mitral regurgitation. There is trace tricuspid regurgitation. There was insufficient TR detected to calculate RV systolic pressure. There is mild aortic valve thickening. Trace pulmonic valvular regurgitation. MD Ole Garza 06/24/2018, 1:51 PM Ordering Physician: Peter Lopez Performed By: Laura Chiu
[2018-06-24] MEDS: MONTELUKAST NA 10 MG TABLET PO SCH (21:52)
[2018-06-24] MEDS: INSULIN (LEVEMIR) 100 UNITS/ML UNITS SQ SCH (21:53)
[2018-06-24] MEDS ORDERED: INSULIN (NOVOLOG) ASPART 100 UNITS/ML 10ML VIAL SQ STA (22:28)
[2018-06-25] MEDS: methylPREDNISolone NA SUCC 40 MG/1 ML VIAL IVPUSH SCH ×2 (01:10→09:36)
[2018-06-25] MEDS: INSULIN SLIDING SCALE (NOVOLOG) 1 VIAL SQ SCH ×2 (06:04→11:45)
[2018-06-25] MEDS: ALBUTEROL SO4 2.5/IPRATROPIUM 0.5 INH SOL 3 ML VIAL.NEB. NEB SCH ×2 (08:28→12:10)
[2018-06-25] MEDS: AZITHROMYCIN IVPB 500 MG/250 ML BAG IVPB SCH (09:24)
[2018-06-25] MEDS: amLODIPine BESYLATE 5 MG TABLET (FP) PO SCH (09:25)
[2018-06-25] MEDS: LORATADINE 10 MG TABLET PO SCH (09:25)
[2018-06-25] MEDS: PANTOPRAZOLE 40 MG TABLET (FP) PO SCH (09:25)
[2018-06-25] MEDS: ENALAPRIL MALEATE 10 MG TABLET (FP) PO SCH (09:25)
[2018-06-25] MEDS: guaiFENesin 600 MG TABLET.ER (FP) PO SCH (09:25)
[2018-06-25] MEDS: FUROSEMIDE 40 MG TABLET (FP) PO SCH (09:25)
[2018-06-25] MEDS: ENOXAPARIN NA (PORCINE) 40 MG/0.4 ML DISP.SYRIN SQ SCH (09:26)
[2018-06-25] MEDS: NICOTINE 14 MG/24 HOURS TOPICAL PATCH TD SCH (09:26)
[2018-06-25] MEDS: FLUTICASONE PROP 0.05% 16 GM NASAL SPRAY NS SCH (09:28)
--- NOTE | 2018-06-25 11:31 | DS ---
Physical Examination Vital Signs: Vital Signs Temperature 98.6 F 06/25/18 06:00 Pulse Rate 76 06/25/18 06:00 Respiratory Rate 20 06/25/18 06:00 Blood Pressure 130/73 06/25/18 06:00 O2 Sat by Pulse Oximetry (%) 94 L 06/24/18 21:00 Constitutional: Yes: No Distress, Calm Cardiovascular: Yes: Regular Rate and Rhythm Respiratory: Yes: Rhonchi (less) Gastrointestinal: Yes: Normal Bowel Sounds, Soft. No: Tenderness Edema: No Labs: CBC, BMP 06/24/18 07:44 06/24/18 07:44 Discharge Summary Reason For Visit: ACUTE WEXACERBATION OF COPD Current Active Problems COPD exacerbation (Acute) Diabetes type 2, controlled (Acute) Dyslipidemia (high LDL; low HDL) (Acute) HTN (hypertension), benign (Acute) Obesity, Class III, BMI 40-49.9 (morbid obesity) (Acute) Hospital Course: Admitted for COPD exacerbation Seen by pulmonary Pt was initially on Solumedrol and IV Zithromax Pt is better Now on PO prednisone taper stable for dc home on po prednisone and zithromax follow up in office after 2 weeks smoking cessation will need PFT and screening chest CT as outpt per Pulmonary Condition: Stable - Instructions Referrals: Denys Gregg MD, MD [Staff Physician] - - Home Medications Comprehensive Discharge Medication List: Ambulatory Orders Penicillin V Potassium [Pen Vee K] 500 mg PO TID #21 tablet 07/27/11 Enalapril Maleate [Vasotec -] 10 mg PO DAILY 08/04/17
[2018-06-25 13:34] VITALS: BP 154/73; PULSE 93; TEMP 97.9
== END 2018-06-25 14:36 | disposition home or self-care (01) | DRG 191 ==
LOC: JERFT 15:22 → JER 15:22 → JERBED 17:37 → J7W 06-23 02:58
PROVIDERS: ADMIT Internal Medicine; ATTEND Internal Medicine
DX: J44.1 Chronic obstructive pulmonary disease with (acute) exacerbation (principal); Z68.43 Body mass index [BMI] 50.0-59.9, adult; I10 Essential (primary) hypertension; E11.9 Type 2 diabetes mellitus without complications; E78.5 Hyperlipidemia, unspecified; E66.01 Morbid (severe) obesity due to excess calories; R94.31 Abnormal electrocardiogram [ECG] [EKG]; Z79.4 Long term (current) use of insulin; J44.0 Chronic obstructive pulmonary disease with (acute) lower respiratory infection; J20.9 Acute bronchitis, unspecified
CPT/HCPCS: 36415; 71046-TC-FY; 80053; 80061; 81003; 82803; 82962; 83036; 83721; 83735; 83880; 84100; 84443; 84484; 85025; 93005; 93010; 93306-TC; 94640; 99284-25

== ENCOUNTER 2019-02-26 01:09 | Emergency (ER) | payer BC ==
[2019-02-26] MEDS ORDERED: KETOROLAC TROMETHAMINE 60 MG/2 ML VIAL IM ONE (01:49)
[2019-02-26] MEDS ORDERED: METHOCARBAMOL 500 MG TABLET PO ONE (01:49)
[2019-02-26] MEDS ORDERED: LIDOCAINE 5% TOPICAL PATCH TP ONE (01:49)
[2019-02-26 01:52] VITALS: TEMP 97.4; BMI 51.3
--- NOTE | 2019-02-26 01:59 | PDOC ---
History of Present Illness - General Chief Complaint: Pain, Acute Stated Complaint: L ARM PAIN Time Seen by Provider: 02/26/19 01:49 History Source: Patient Exam Limitations: No Limitations - History of Present Illness Initial Comments: 02/26/19 01:57 54F with a PMH of hypertension, IDDM, COPD, asthma who presents to the ER for L shoulder pain which is worsening. The patient states that she's had 2 days of atraumatic, L shoulder pain which is sharp, intermittent, radiates to her neck and down to her elbow. She denies CP, SOB, nausea, vomiting, palpitations, fever , chills, numbness, tingling, and weakness. She states that she is unable to move her arm due to the pain. Past History - Past Medical History Allergies/Adverse Reactions: Allergies Allergy/AdvReac Type Severity Reaction Status Date / Time levofloxacin [From Levaquin] Allergy Rash Verified 02/26/19 01:52 Home Medications: Ambulatory Orders Enalapril Maleate [Vasotec -] 10 mg PO DAILY 08/04/17 Azithromycin [Zithromax] 500 mg PO DAILY #3 tablet 06/25/18 Fluticasone Prop 0.05% Nasal [Flonase -] 2 spray NS DAILY #1 spray 06/25/18 Guaifenesin [Mucinex -] 1,200 mg PO BID #60 tablet.er 06/25/18 Nicotine Patch [Nicoderm Patch -] 14 mg TD DAILY #14 patch 06/25/18 Pantoprazole Sodium [Protonix -] 40 mg PO DAILY #30 tablet.ec 06/25/18 predniSONE [Deltasone -] See Taper PO ASDIR #30 tab 06/25/18 Lidocaine 5% Patch [Lidoderm Patch -] 1 patch TP DAILY #30 patch 02/26/19 Methocarbamol [Robaxin -] 500 mg PO TID #30 tablet 02/26/19 Anemia: No Asthma: Yes Cancer: No Cardiac Disorders: No CVA: No COPD: Yes CHF: No Dementia: No Diabetes: Yes GI Disorders: No Disorders: No HTN: Yes Hypercholesterolemia: No Liver Disease: No Seizures: No Thyroid Disease: No - Surgical History Abdominal Surgery: No Appendectomy: No Cardiac Surgery: No Cholecystectomy: No Lung Surgery: No Neurologic Surgery: No Orthopedic Surgery: No - Immunization History Immunization Up to Date: Yes - Psycho Social/Smoking Cessation Hx Smoking Status: Yes Smoking History: Never smoked Have you smoked in the past 12 months: Yes Number of Cigarettes Smoked Daily: 6 If you are a former smoker, when did you quit?: 04/2015 'Breaking Loose' booklet given: 03/30/13 Hx Alcohol Use: No Drug/Substance Use Hx: No Substance Use Type: None Hx Substance Use Treatment: No Review of Systems - Review of Systems Able to Perform ROS?: Yes Comments:: 02/26/19 03:39 GENERAL/CONSTITUTIONAL: No fever or chills. No weakness. HEAD, EYES, EARS, NOSE AND THROAT: No change in vision. No ear pain or discharge. No sore throat. CARDIOVASCULAR: No chest pain, palpitations, or lightheadedness. RESPIRATORY: No cough, wheezing, shortness of breath, or hemoptysis. GASTROINTESTINAL: No abdominal pain, nausea, vomiting, diarrhea, or constipation. GENITOURINARY: No dysuria, frequency, hematuria, or change in urination. MUSCULOSKELETAL: + for L shoulder pain. No joint or muscle swelling or pain. No neck or back pain. SKIN: No rash or lesions. NEUROLOGIC: No headache, numbness, tingling, focal weakness, loss of consciousness, or change in strength/sensation. Is the patient limited Ukrainian proficient: No *Physical Exam - Vital Signs Last Vital Signs Temp Pulse Resp BP Pulse Ox 97.4 F L 82 20 158/86 99 02/26/19 01:09 02/26/19 01:09 02/26/19 01:09 02/26/19 01:09 02/26/19 01:09 - Physical Exam Comments: 02/26/19 03:39 GENERAL: Well developed, well nourished. Awake and alert. Mild distress. HEENT: Normocephalic, atraumatic. Hearing grossly normal. Moist mucous membranes. PERRLA, EOMI. No conjunctival pallor. Sclera are non-icteric. NECK: Supple. Full ROM. PULMONARY: No evidence of respiratory distress. Lungs clear to auscultation bilaterally. No wheezing, rales or rhonchi. MUSCULOSKELETAL: TTP over lateral L shoulder with inability to passively or actively move L shoulder. Sensation intact. SKIN: Warm and dry. Normal capillary refill. No rashes. No jaundice. NEUROLOGICAL: Alert, awake, appropriate. Cranial nerves 2-12 intact. Normal speech. Gait is normal without ataxia. PSYCHIATRIC: Cooperative. Good eye contact. Appropriate mood and affect. Heart Score/ECG Review - History History: Slightly suspicious #1 ECG reviewed & interpreted by me at: 03:40 General ECG Interpretation: Sinus Rhythm, Normal Rate, Normal Intervals, No acute ischemic changes 02/26/19 03:40 NSR vent rate 90 CT 198 QRS 86 QTc 486 No STD or CLARICE No signs of acute ischemia Medical Decision Making - Medical Decision Making 02/26/19 03:44 54F with MMP who presents with L shoulder pain, likely MSK as pt has reproducible pain and no concerning symptoms of CP, SOB, fever, chills, nausea, vomiting, palpitations, or lightheadedness. Will treat symptomatically and reassess. 02/26/19 04:14 Pt states she feels much better. Will d/c with PCP and ortho f/u. Discharge - Discharge Information Problems reviewed: Yes Clinical Impression/Diagnosis: Shoulder pain, left Qualifiers: Chronicity: acute Qualified Code(s): M25.512 - Pain in left shoulder Condition: Fair Disposition: HOME - Admission No - Additional Discharge Information Prescriptions: Lidocaine 5% Patch [Lidoderm Patch -] 1 patch TP DAILY #30 patch Methocarbamol [Robaxin -] 500 mg PO TID #30 tablet - Follow up/Referral Referrals: Tony Evangelista DO [Staff Physician] - - Patient Discharge Instructions Additional Instructions: Your ER visit is not complete until your follow up with your primary care physician. Please follow up with your primary care physician in 1-2 days. Please return to the ER if you have any signs or symptoms of chest pain, shortness of breath, uncontrollable fever, chills, nausea, vomiting, numbness, tingling, or weakness in any part of your body, changes in vision, or slurred speech. Please take your medications as prescribed. Please return to the ER if symptoms persist, worsen, or new symptoms arise. - Post Discharge Activity
[2019-02-26] MEDS ORDERED: METHOCARBAMOL 500 MG TABLET ONE ×2 (02:48→02:52)
[2019-02-26] MEDS ORDERED: KETOROLAC TROMETHAMINE 60 MG/2 ML VIAL ONE (02:48)
[2019-02-26] MEDS ORDERED: LIDOCAINE 5% TOPICAL PATCH ONE (02:49)
[2019-02-26 05:16] VITALS: BP 95/55; PULSE 72
--- NOTE | 2019-02-26 11:32 | EKG ---
Test Reason : Blood Pressure : / mmHG Vent. Rate : 089 BPM Atrial Rate : 089 BPM P-R Int : 198 ms QRS Dur : 086 ms QT Int : 400 ms P-R-T Axes : 045 008 016 degrees QTc Int : 486 ms NORMAL SINUS RHYTHM CANNOT RULE OUT ANTERIOR INFARCT , AGE UNDETERMINED ABNORMAL ECG WHEN COMPARED WITH ECG OF 22-JUN-2018 19:07, NO SIGNIFICANT CHANGE WAS FOUND Confirmed by MARY ELLEN DE LA TORRE MD ([id number]) on 02/26/2019 11:31:58 AM Referred By: Confirmed By:MARY ELLEN DE LA TORRE MD
[2019-02-26] MEDS ORDERED: LIDOCAINE PATCH REMOVAL MC SCH (22:00)
== END 2019-02-26 05:00 | disposition home or self-care (01) ==
LOC: JER 01:09
PROC: 3E0233Z Introduction of Anti-inflammatory into Muscle, Percutaneous Approach (ICD-10-PCS; principal; 2019-02-26)
DX: M25.512 Pain in left shoulder (principal); Z88.8 Allergy status to other drugs, medicaments and biological substances; Z87.891 Personal history of nicotine dependence; J45.909 Unspecified asthma, uncomplicated; E11.9 Type 2 diabetes mellitus without complications; I10 Essential (primary) hypertension
CPT/HCPCS: 93005; 93010; 99282-25

== ENCOUNTER 2020-02-12 01:48 | Inpatient (IN) | payer BC ==
[2020-02-12 02:12] VITALS: BMI 51.3
[2020-02-12] MEDS ORDERED: SODIUM CHLORIDE 1,000 ML IV SCH (02:30)
[2020-02-12 03:01] LABS: BASO % 0.9 % (0-2.0); CHOLESTEROL 169 mg/dL (50-200); EOS % 2.4 % (0-4.5); HEMATOCRIT 40.4 % (32.4-45.2); HEMOGLOBIN 13.4 GM/dL (10.7-15.3); LYMPH % 35.4 % (8-40); MCH 29.8 pg (25.7-33.7); MCHC 33.3 g/dl (32.0-36.0); MEAN CELL VOLUME 89.5 fl (80-96); MEAN PLT VOLUME 9.2 fl (7.5-11.1); MONO % 8.7 % (3.8-10.2); NEUT % 52.6 % (42.8-82.8); PLATELET COUNT 275 K/MM3 (134-434); RBC 4.51 M/mm3 (3.60-5.2); RDW 15.2 % (11.6-15.6); TRIGLYCERIDES 121 mg/dL (0-150); WHITE BLOOD COUNT 11.8 K/mm3 (4.0-10.0)
[2020-02-12 03:02] LABS: LDL CHOLESTEROL (ONLY SJRH) 99 mg/dL (5-100)
[2020-02-12 03:03] LABS: INR 0.95 (0.83-1.09); PROTHROMBIN TIME (PATIENT) 11.5 SEC (9.7-13.0)
[2020-02-12 03:04] LABS: HDL CHOLESTEROL 49 mg/dL (40-60)
[2020-02-12 03:05] LABS: ACTIVATED PTT 33.2 SECONDS (25.2-36.5)
[2020-02-12 03:24] LABS: CHLORIDE 110 mmol/L (98-107); POTASSIUM 3.6 mmol/L (3.5-5.1); SODIUM 141 mmol/L (136-145)
[2020-02-12 03:26] LABS: CALCIUM 8.3 mg/dL (8.5-10.1)
[2020-02-12 03:27] LABS: ALBUMIN 3.3 g/dl (3.4-5.0); ANION GAP 10 MMOL/L (8-16); BLOOD UREA NITROGEN 15.1 mg/dL (7-18); CO2 21 mmol/L (21-32); GLUCOSE,RANDOM 188 mg/dL (74-106)
[2020-02-12 03:30] LABS: CREATININE 1.2 mg/dL (0.55-1.3); SGOT/AST 15 U/L (15-37); SGPT/ALT 25 U/L (13-61)
[2020-02-12 03:31] LABS: BILIRUBIN,TOTAL 0.6 mg/dL (0.2-1); TOT PROT 7.3 g/dl (6.4-8.2)
[2020-02-12 03:33] LABS: ALK PHOS 99 U/L (45-117)
[2020-02-12] MEDS ORDERED: TETRACAINE 0.5% HCL 0.6ML DROPPER.BOTTLE OD ONE (03:53)
[2020-02-12] MEDS ORDERED: FLUORESCEIN NA 1 EA STRIP ONE (03:54)
[2020-02-12] MEDS ORDERED: TETRACAINE 0.5% OPHTH SOLN 2 ML BOTTLE ONE (03:54)
[2020-02-12] MEDS ORDERED: FLUORESCEIN NA 1 EA STRIP OD ONE (03:54)
[2020-02-12] MEDS ORDERED: ASPIRIN 325 MG TABLET PO ONE (04:12)
[2020-02-12] MEDS ORDERED: ATORVASTATIN CA 80 MG TABLET (FP) PO ONE (04:13)
[2020-02-12] MEDS ORDERED: ASPIRIN 325 MG ENTERIC COATED TABLET (FP) ONE (04:19)
[2020-02-12] MEDS ORDERED: ATORVASTATIN CA 80 MG TABLET (FP) ONE (04:19)
[2020-02-12] MEDS ORDERED: DEXTROSE 5%-0.45% SALINE 1,000 ML IV SCH (04:30)
[2020-02-12 04:59] VITALS: PULSE 74
[2020-02-12 08:41] VITALS: BP 100/58; TEMP 98.2
[2020-02-12] MEDS ORDERED: NICOTINE 14 MG/24 HOURS TOPICAL PATCH TD SCH (10:00)
[2020-02-13] MEDS ORDERED: ASPIRIN 81 MG CHEWABLE TABLETS PO SCH (10:00)
[2020-02-13] MEDS ORDERED: ATORVASTATIN CA 80 MG TABLET (FP) PO SCH (22:00)
== END 2020-02-12 09:00 | disposition left against medical advice (07) | DRG 65 ==
LOC: JER 01:48 → JERBED 04:17
PROVIDERS: ADMIT Hospitalist; ATTEND Internal Medicine
DX: I63.9 Cerebral infarction, unspecified (principal); Z68.43 Body mass index [BMI] 50.0-59.9, adult; I69.351 Hemiplegia and hemiparesis following cerebral infarction affecting right dominant side; R20.0 Anesthesia of skin; I10 Essential (primary) hypertension; E11.9 Type 2 diabetes mellitus without complications; M54.12 Radiculopathy, cervical region; E78.5 Hyperlipidemia, unspecified; F17.210 Nicotine dependence, cigarettes, uncomplicated; E66.9 Obesity, unspecified; R29.703 NIHSS score 3; H53.8 Other visual disturbances; J45.909 Unspecified asthma, uncomplicated; R42 Dizziness and giddiness
CPT/HCPCS: 36415; 70450-TC; 70496-TC; 70498-TC; 71045-TC-FY; 80053; 80061; 82550; 82962; 83036; 83721; 84484; 85025; 85610; 85730; 86850; 86900; 86901; 93005; 93010; 99285-25; C9803; U0003

== ENCOUNTER 2020-06-18 19:42 | Emergency (ER) | payer BC ==
[2020-06-18 20:05] VITALS: BMI 52.6
[2020-06-18] MEDS ORDERED: ACETAMINOPHEN 500 MG TABLET (FP) PO ONE (20:45)
[2020-06-18] MEDS ORDERED: ALBUTEROL SO4 2.5/IPRATROPIUM 0.5 INH SOL 3 ML VIAL.NEB. NEB ONE ×2 (20:49→21:07)
[2020-06-18] MEDS ORDERED: ACETAMINOPHEN 325 MG TABLET (FP) ONE (21:07)
[2020-06-18] MEDS ORDERED: BAMLANIVIMAB 700 MG in SODIUM CHLORIDE 250 ML IVPB ONE (23:42)
[2020-06-19] MEDS ORDERED: BAMLANIVIMAB 700 MG, ETESEVIMAB 1,400 MG in SODIUM CHLORIDE 250 ML IVPB ONE (01:58)
[2020-06-19 05:03] VITALS: BP 111/46; PULSE 78; TEMP 98.3
== END 2020-06-19 05:24 | disposition home or self-care (01) ==
LOC: JER 19:42
PROC: 3E0F7GC Introduction of Other Therapeutic Substance into Respiratory Tract, Via Natural or Artificial Opening (ICD-10-PCS; principal; 2020-06-18)
PROC: 3E033GC Introduction of Other Therapeutic Substance into Peripheral Vein, Percutaneous Approach (ICD-10-PCS; 2020-06-19)
DX: U07.1 COVID-19 (principal); J12.82 Pneumonia due to coronavirus disease 2019
CPT/HCPCS: 71046-TC-FY; 87804; 99284-25; C9803; M0239; Q0239; Q0245; U0003

== ENCOUNTER 2020-10-10 11:04 | Emergency (ER) | payer BC ==
[2020-10-10 11:14] VITALS: TEMP 98.1; BMI 53.3
[2020-10-10] MEDS ORDERED: PSEUDOEPHEDRINE HCL 60 MG TABLET PO ONE (11:44)
[2020-10-10] MEDS ORDERED: PSEUDOEPHEDRINE HCL 60 MG TABLET ONE (12:02)
[2020-10-10 14:59] VITALS: BP 127/70; PULSE 77
== END 2020-10-10 16:27 | disposition home or self-care (01) ==
LOC: JER 11:04 → JERFT 11:04
DX: R09.81 Nasal congestion (principal)
CPT/HCPCS: 70450-TC; 70480-TC; 99284-25

== ENCOUNTER 2020-10-17 13:28 | Emergency (ER) | payer BC ==
[2020-10-17 13:43] VITALS: BP 119/79; PULSE 94; TEMP 98.4; BMI 53.6
[2020-10-17] MEDS ORDERED: ACETAMINOPHEN 1000 MG/100 ML VIAL (NON FORMULARY) IVPB ONE (16:52)
[2020-10-17] MEDS ORDERED: SODIUM CHLORIDE 0.9% 500 ML INFUS.BAG IV ONE (16:58)
[2020-10-17] MEDS ORDERED: ACETAMINOPHEN INJECTION 100 ML IVPB ONE (17:00)
[2020-10-17 17:35] LABS: BASO % 0.6 % (0-2.0); EOS % 0.6 % (0-4.5); HEMATOCRIT 44.3 % (32.4-45.2); HEMOGLOBIN 14.8 GM/dL (10.7-15.3); LYMPH % 23.8 % (8-40); MCH 29.9 pg (25.7-33.7); MCHC 33.4 g/dl (32.0-36.0); MEAN CELL VOLUME 89.6 fl (80-96); MEAN PLT VOLUME 8.2 fl (7.5-11.1); PLATELET COUNT 255 10^3/uL (134-434); RBC 4.95 M/mm3 (3.60-5.2); RDW 14.2 % (11.6-15.6); WHITE BLOOD COUNT 12.9 K/mm3 (4.0-10.0)
[2020-10-17 17:39] LABS: EPI CELLS 7 /uL (0-25.1); HYALINE CASTS 2 /uL (0-3.1); URINE APPEARANCE CLOUDY; URINE BACTERIA >9,000 /uL (0-1359); URINE BILIRUBIN NEGATIVE (NEGATIVE); URINE COLOR YELLOW; URINE GLUCOSE (UA) NEGATIVE (NEGATIVE); URINE KETONE NEGATIVE (NEGATIVE); URINE LEUK ESTERASE 3+ (NEGATIVE); URINE NITRITE POSITIVE (NEGATIVE); URINE PROTEIN TRACE (NEGATIVE); URINE RBC 38 /uL (0-23.9); URINE WBC 511 /uL (0-25.8)
[2020-10-17 17:48] LABS: ALBUMIN 3.4 g/dl (3.4-5.0); BLOOD UREA NITROGEN 17.7 mg/dL (7-18); CALCIUM 8.8 mg/dL (8.5-10.1)
[2020-10-17 17:49] LABS: VENOUS BASE EXCESS 0.8 mmol/L (-2-2); VENOUS O2 SATURATION 47.4 % (70-80); VENOUS PCO2 50.6 mmHg (38-52); VENOUS PH 7.35 (7.310-7.410)
[2020-10-17 17:51] LABS: CREATININE 1.1 mg/dL (0.55-1.3)
[2020-10-17 17:52] LABS: BILIRUBIN,TOTAL 1.1 mg/dL (0.2-1)
[2020-10-17 17:53] LABS: TOT PROT 7.5 g/dl (6.4-8.2)
[2020-10-17] MEDS ORDERED: SULFAMETHOXAZOLE/TRIMETHOPRIM 800MG/160MG D.S. TABLET PO ONE (18:38)
[2020-10-17] MEDS ORDERED: SULFAMETHOXAZOLE/TRIMETHOPRIM 800MG/160MG D.S. TABLET ONE (19:17)
== END 2020-10-17 19:00 | disposition home or self-care (01) ==
LOC: JER 13:28 → JERFT 13:28 → JER 19:00
PROC: 3E0333Z Introduction of Anti-inflammatory into Peripheral Vein, Percutaneous Approach (ICD-10-PCS; principal; 2020-10-17)
DX: N39.0 Urinary tract infection, site not specified (principal)
CPT/HCPCS: 36415; 80053; 81003; 82010; 82803; 82962; 84703; 85025; 87086; 87186; 93005; 93010; 99284-25; J0131

== ENCOUNTER 2020-12-30 16:35 | Inpatient (IN) | payer BC ==
[2020-12-30] MEDS: ALBUTEROL SO4 2.5/IPRATROPIUM 0.5 INH SOL 3 ML VIAL.NEB. NEB SCH ×4 (17:00→18:30)
[2020-12-30] MEDS ORDERED: ALBUTEROL SO4 2.5/IPRATROPIUM 0.5 INH SOL 3 ML VIAL.NEB. NEB ONE (17:06)
[2020-12-30] MEDS ORDERED: DEXAMETHASONE SOD PHOSPHATE 10 MG/1 ML VIAL IVPUSH ONE (18:15)
[2020-12-30] MEDS ORDERED: MAGNESIUM SULF 50% (8.12 MEQ/2 ML-1 GM VIAL) IVPB ONE (18:20)
[2020-12-30] MEDS ORDERED: ALBUTEROL SO4 0.083% IH SOL 2.5 MG/3 ML VIAL.NEB. NEB ONE ×2 (18:45→19:55)
[2020-12-30] MEDS ORDERED: DEXAMETHASONE SOD PHOSPHATE 10 MG/1 ML VIAL ONE (18:45)
[2020-12-30] MEDS ORDERED: MAGNESIUM 1GM/D5W - 1 GM/100 ML IVPB IVPB ONE (18:46)
[2020-12-30] MEDS: ALBUTEROL SO4 0.083% IH SOL 2.5 MG/3 ML VIAL.NEB. NEB SCH ×4 (18:51→19:58)
[2020-12-30 19:26] VITALS: TEMP 98.3; BMI 53.5
[2020-12-30 19:49] LABS: BASO % 0.6 % (0-2.0); HEMATOCRIT 40.1 % (32.4-45.2); HEMOGLOBIN 13.4 GM/dL (10.7-15.3); LYMPH % 6.5 % (8-40); MCH 29.7 pg (25.7-33.7); MCHC 33.4 g/dl (32.0-36.0); MEAN PLT VOLUME 8.5 fl (7.5-11.1); MONO % 2.7 % (3.8-10.2); NEUT % 90.2 % (42.8-82.8); PLATELET COUNT 218 10^3/uL (134-434); RBC 4.51 M/mm3 (3.60-5.2); RDW 14.7 % (11.6-15.6); WHITE BLOOD COUNT 11.9 K/mm3 (4.0-10.0)
[2020-12-30 20:06] LABS: CHLORIDE 109 mmol/L (98-107); SODIUM 140 mmol/L (136-145)
[2020-12-30 20:08] LABS: CALCIUM 8.3 mg/dL (8.5-10.1)
[2020-12-30 20:09] LABS: ALBUMIN 3.1 g/dl (3.4-5.0); ANION GAP 9 MMOL/L (8-16); BLOOD UREA NITROGEN 11.3 mg/dL (7-18); CO2 22 mmol/L (21-32); GLUCOSE,RANDOM 305 mg/dL (74-106)
[2020-12-30 20:12] LABS: CREATININE 1.2 mg/dL (0.55-1.3); SGOT/AST 9 U/L (15-37); SGPT/ALT 19 U/L (13-61)
[2020-12-30 20:13] LABS: BILIRUBIN,TOTAL 0.5 mg/dL (0.2-1)
[2020-12-30 20:14] LABS: TOT PROT 6.8 g/dl (6.4-8.2)
[2020-12-30 20:15] LABS: ALK PHOS 80 U/L (45-117)
[2020-12-30 20:47] VITALS: PULSE 92
[2020-12-30 21:03] LABS: VENOUS O2 SATURATION 81.4 % (70-80); VENOUS PCO2 39.7 mmHg (38-52); VENOUS PH 7.379 (7.310-7.410)
[2020-12-30] MEDS ORDERED: POLYETHYLENE GLYCOL (HEALTHYLAX) 3350 17 GM PACKET PO PRN (21:49)
[2020-12-30] MEDS ORDERED: ALBUTEROL SO4 0.083% IH SOL 2.5 MG/3 ML VIAL.NEB. NEB PRN (21:49)
[2020-12-30] MEDS ORDERED: INSULIN SLIDING SCALE (NOVOLOG) 1 VIAL SQ SCH (22:00)
[2020-12-30 22:36] VITALS: BP 145/62
[2020-12-31] MEDS ORDERED: DOCUSATE SODIUM 100 MG CAPSULE (FP) PO PRN (00:34)
[2020-12-31] MEDS ORDERED: ATORVASTATIN CA 20 MG TABLET (FP) PO SCH (00:45)
[2020-12-31] MEDS ORDERED: FAMOTIDINE 20 MG TABLET PO SCH (00:45)
[2020-12-31] MEDS ORDERED: ATORVASTATIN CA 20 MG TABLET (FP) ONE (01:15)
[2020-12-31] MEDS ORDERED: FAMOTIDINE 20 MG TABLET ONE (01:15)
[2020-12-31] MEDS ORDERED: ALBUTEROL SO4 0.083% IH SOL 2.5 MG/3 ML VIAL.NEB. NEB ONE (01:26)
[2020-12-31] MEDS ORDERED: HEPARIN NA (PORCINE) 5,000 UNITS/ML 1ML VIAL SQ SCH (06:00)
[2020-12-31] MEDS ORDERED: ENALAPRIL MALEATE 10 MG TABLET PO SCH (10:00)
[2020-12-31] MEDS ORDERED: AZITHROMYCIN 250 MG TABLET PO SCH (10:00)
== END 2021-01-01 02:15 | disposition left against medical advice (07) | DRG 191 ==
LOC: JER 16:35 → JERBED 21:32
PROVIDERS: ADMIT Internal Medicine; ATTEND Internal Medicine
DX: J44.9 Chronic obstructive pulmonary disease, unspecified (principal); J45.901 Unspecified asthma with (acute) exacerbation; Z86.16 Personal history of COVID-19; E11.9 Type 2 diabetes mellitus without complications; I10 Essential (primary) hypertension; Z79.84 Long term (current) use of oral hypoglycemic drugs
CPT/HCPCS: 36415; 71045-TC-FY; 80053; 82550; 82803; 82962; 84484; 85025; 93005; 93010; 99285-25; C9803; J1100; U0003; U0005

== ENCOUNTER 2021-08-08 15:12 | Emergency (ER) | payer BC ==
[2021-08-08 15:35] VITALS: BP 127/86; PULSE 89; TEMP 98.3; BMI 51.5
[2021-08-08] MEDS ORDERED: DEXAMETHASONE SOD PHOSPHATE 10 MG/1 ML VIAL IVPUSH ONE (16:14)
[2021-08-08] MEDS ORDERED: DEXAMETHASONE SOD PHOSPHATE 10 MG/1 ML VIAL ONE (16:59)
[2021-08-08] MEDS ORDERED: MAGNESIUM 1GM/D5W - 1 GM/100 ML IVPB IVPB ONE (16:59)
[2021-08-08] MEDS ORDERED: ALBUTEROL SO4 2.5/IPRATROPIUM 0.5 INH SOL 3 ML VIAL.NEB. NEB ONE (16:59)
[2021-08-08] MEDS: ALBUTEROL SO4 2.5/IPRATROPIUM 0.5 INH SOL 3 ML VIAL.NEB. NEB SCH ×4 (17:15→18:00)
[2021-08-08 18:06] LABS: VENOUS BASE EXCESS -0.5 mmol/L (-2-2); VENOUS O2 SATURATION 90.3 % (70-80); VENOUS PCO2 38.3 mmHg (38-52); VENOUS PH 7.411 (7.310-7.410)
[2021-08-08 18:08] LABS: BASO % 0.7 % (0-2.0); EOS % 4.4 % (0-4.5); HEMATOCRIT 44.7 % (32.4-45.2); HEMOGLOBIN 14.8 GM/dL (10.7-15.3); LYMPH % 31.6 % (8-40); MCH 30.1 pg (25.7-33.7); MCHC 33.2 g/dl (32.0-36.0); MEAN CELL VOLUME 90.7 fl (80-96); MEAN PLT VOLUME 8.8 fl (7.5-11.1); MONO % 12.1 % (3.8-10.2); NEUT % 51.2 % (42.8-82.8); PLATELET COUNT 228 10^3/uL (134-434); RBC 4.93 M/mm3 (3.60-5.2); RDW 14.2 % (11.6-15.6); WHITE BLOOD COUNT 7.6 K/mm3 (4.0-10.0)
[2021-08-08 18:41] LABS: ALBUMIN 3.4 g/dl (3.4-5.0); BLOOD UREA NITROGEN 14.5 mg/dL (7-18); CALCIUM 9.5 mg/dL (8.5-10.1)
[2021-08-08 18:44] LABS: CREATININE 0.8 mg/dL (0.55-1.3)
[2021-08-08 18:46] LABS: BILIRUBIN,TOTAL 0.6 mg/dL (0.2-1); TOT PROT 7.1 g/dl (6.4-8.2)
== END 2021-08-08 20:56 | disposition home or self-care (01) ==
LOC: JER 15:12
PROC: 3E033GC Introduction of Other Therapeutic Substance into Peripheral Vein, Percutaneous Approach (ICD-10-PCS; principal; 2021-08-08)
PROC: 3E0F7GC Introduction of Other Therapeutic Substance into Respiratory Tract, Via Natural or Artificial Opening (ICD-10-PCS; 2021-08-08)
DX: J44.1 Chronic obstructive pulmonary disease with (acute) exacerbation (principal); J40 Bronchitis, not specified as acute or chronic
CPT/HCPCS: 0241U-QW; 36415; 71046-TC-FY; 80053; 82803; 84484; 85025; 87807; 93005; 93010; 99285-25; C9803-CS; J1100; U0003; U0005

== ENCOUNTER 2021-10-06 19:04 | Emergency (ER) | payer BC ==
[2021-10-06 19:19] VITALS: BP 119/72; PULSE 92; TEMP 98; BMI 54.7
[2021-10-06] MEDS ORDERED: diazePAM 5 MG TABLET PO ONE (20:15)
[2021-10-06] MEDS ORDERED: ACETAMINOPHEN 325 MG TABLET (FP) PO ONE (20:15)
[2021-10-06] MEDS ORDERED: KETOROLAC TROMETHAMINE 30 MG/1 ML VIAL IM ONE (20:15)
[2021-10-06] MEDS ORDERED: diazePAM 5 MG TABLET ONE (21:01)
[2021-10-06] MEDS ORDERED: ACETAMINOPHEN 325 MG TABLET (FP) ONE (21:01)
[2021-10-06] MEDS ORDERED: KETOROLAC TROMETHAMINE 30 MG/1 ML VIAL ONE ×2 (21:02)
== END 2021-10-06 22:16 | disposition home or self-care (01) ==
LOC: JERFT 19:04
PROC: 3E0233Z Introduction of Anti-inflammatory into Muscle, Percutaneous Approach (ICD-10-PCS; principal; 2021-10-06)
DX: M25.511 Pain in right shoulder (principal)
CPT/HCPCS: 73030-TC-RT-FY; 93005; 93010; 99285-25

== ENCOUNTER 2022-02-25 13:12 | Emergency (ER) | payer BC ==
[2022-02-25 13:28] VITALS: BMI 51.1
[2022-02-25] MEDS ORDERED: ALBUTEROL SO4 2.5/IPRATROPIUM 0.5 INH SOL 3 ML VIAL.NEB. NEB ONE ×5 (14:06→15:10)
[2022-02-25 14:29] LABS: BASO % 0.9 % (0-2.0); EOS % 1.7 % (0-4.5); HEMATOCRIT 45.6 % (32.4-45.2); LYMPH % 30.5 % (8-40); MCH 30.1 pg (25.7-33.7); MCHC 32.9 g/dl (32.0-36.0); MEAN CELL VOLUME 91.5 fl (80-96); MEAN PLT VOLUME 9.3 fl (7.5-11.1); MONO % 16.5 % (3.8-10.2); NEUT % 50.4 % (42.8-82.8); PLATELET COUNT 217 10^3/uL (134-434); RBC 4.98 M/mm3 (3.60-5.2); WHITE BLOOD COUNT 6.1 K/mm3 (4.0-10.0)
[2022-02-25 14:35] LABS: INR 1.02 (0.83-1.09); PROTHROMBIN TIME (PATIENT) 11.7 SEC (9.7-13.0)
[2022-02-25 14:38] LABS: ACTIVATED PTT 30.9 SECONDS (25.2-36.5)
[2022-02-25 14:49] LABS: CALCIUM 8.8 mg/dL (8.5-10.1)
[2022-02-25 14:50] LABS: ALBUMIN 3.2 g/dl (3.4-5.0); BLOOD UREA NITROGEN 13.5 mg/dL (7-18); MAGNESIUM 1.8 mg/dL (1.8-2.4)
[2022-02-25 14:54] LABS: TOT PROT 6.9 g/dl (6.4-8.2)
[2022-02-25 14:59] LABS: BILIRUBIN,TOTAL 0.4 mg/dL (0.2-1)
[2022-02-25] MEDS ORDERED: ACETAMINOPHEN 325 MG TABLET (FP) ONE (15:15)
[2022-02-25] MEDS ORDERED: ACETAMINOPHEN 325 MG TABLET (FP) PO ONE (15:16)
[2022-02-25] MEDS ORDERED: MAGNESIUM SULF 50% (8.12 MEQ/2 ML-1 GM VIAL) IVPB ONE (16:10)
[2022-02-25] MEDS ORDERED: ALBUTEROL SO4 0.5 % INH SOLN 2.5 MG/0.5 ML VIAL.NEB. NEB ONE (16:19)
[2022-02-25] MEDS ORDERED: MAGNESIUM 1GM/D5W - 1 GM/100 ML IVPB IVPB ONE (16:20)
[2022-02-25] MEDS: ALBUTEROL SO4 0.083% IH SOL 2.5 MG/3 ML VIAL.NEB. NEB SCH ×2 (16:20→18:08)
[2022-02-25] MEDS ORDERED: ALBUTEROL SO4 HFA INHALER IH ONE (17:38)
[2022-02-25 18:33] VITALS: BP 122/68; PULSE 99; RESP 16; TEMP 97.5
== END 2022-02-25 18:33 | disposition home or self-care (01) ==
LOC: JER 13:12
PROC: 3E0F7GC Introduction of Other Therapeutic Substance into Respiratory Tract, Via Natural or Artificial Opening (ICD-10-PCS; principal; 2022-02-25)
PROC: 3E033NZ Introduction of Analgesics, Hypnotics, Sedatives into Peripheral Vein, Percutaneous Approach (ICD-10-PCS; 2022-02-25)
DX: R06.02 Shortness of breath (principal); R05.9 Cough, unspecified; J09.X2 Influenza due to identified novel influenza A virus with other respiratory manifestations; J44.1 Chronic obstructive pulmonary disease with (acute) exacerbation
CPT/HCPCS: 0241U-QW; 36415; 71045-TC-FY; 80053; 83735; 84484; 85025; 85610; 85730; 93005; 93010; 99284-25

== ENCOUNTER 2022-12-11 18:34 | Emergency (ER) | payer BC ==
[2022-12-11 18:40] VITALS: BP 129/109; PULSE 87; RESP 20; TEMP 97.7; BMI 51.5
== END 2022-12-11 20:23 | disposition left against medical advice (07) ==
LOC: JERFT 18:34
DX: M54.6 Pain in thoracic spine (principal)
CPT/HCPCS: 99281-25

== ENCOUNTER 2022-12-15 15:23 | Emergency (ER) | payer BC ==
[2022-12-15 15:45] VITALS: BP 154/79; PULSE 93; RESP 20; TEMP 97.9; BMI 51.7
[2022-12-15] MEDS ORDERED: LIDOCAINE 5% TOPICAL PATCH TP ONE (16:36)
[2022-12-15] MEDS ORDERED: KETOROLAC TROMETHAMINE 15 MG/ML VIAL IM ONE (16:36)
[2022-12-15] MEDS ORDERED: METHOCARBAMOL 500 MG TABLET PO ONE (16:36)
[2022-12-15] MEDS ORDERED: LIDOCAINE 5% TOPICAL PATCH ONE (16:49)
[2022-12-15] MEDS ORDERED: METHOCARBAMOL 500 MG TABLET ONE (16:49)
[2022-12-15] MEDS ORDERED: KETOROLAC TROMETHAMINE 30 MG/1 ML VIAL ONE (16:49)
[2022-12-15] MEDS ORDERED: diazePAM 5 MG TABLET PO ONE (18:17)
[2022-12-15] MEDS ORDERED: diazePAM 5 MG TABLET ONE (19:19)
[2022-12-15] MEDS ORDERED: LIDOCAINE PATCH REMOVAL MC SCH (22:00)
== END 2022-12-15 19:50 | disposition home or self-care (01) ==
LOC: FER 15:23
PROC: 3E0233Z Introduction of Anti-inflammatory into Muscle, Percutaneous Approach (ICD-10-PCS; principal; 2022-12-15)
DX: M54.50 Low back pain, unspecified (principal); G89.29 Other chronic pain
CPT/HCPCS: 99284-25

== ENCOUNTER 2023-12-29 11:15 | Emergency (ER) | payer BC ==
[2023-12-29 11:19] VITALS: RESP 20; TEMP 99.5; BMI 47.1
[2023-12-29] MEDS ORDERED: ACETAMINOPHEN 500 MG TABLET (FP) ONE (11:48)
[2023-12-29] MEDS ORDERED: predniSONE 20 MG TABLET (UD) ONE (11:48)
[2023-12-29] MEDS: predniSONE 20 MG TABLET (UD) PO ONE (11:55)
[2023-12-29] MEDS: ALBUTEROL SO4 2.5/IPRATROPIUM 0.5 INH SOL 3 ML VIAL.NEB. NEB SCH (11:55)
[2023-12-29] MEDS: ACETAMINOPHEN 500 MG TABLET (FP) PO ONE (11:55)
[2023-12-29 12:54] VITALS: BP 134/66; PULSE 90
== END 2023-12-29 13:02 | disposition home or self-care (01) ==
LOC: FER 11:15
PROC: 3E0F7GC Introduction of Other Therapeutic Substance into Respiratory Tract, Via Natural or Artificial Opening (ICD-10-PCS; principal; 2023-12-29)
DX: R05.1 Acute cough (principal); J44.1 Chronic obstructive pulmonary disease with (acute) exacerbation; N39.0 Urinary tract infection, site not specified; J02.9 Acute pharyngitis, unspecified; R09.81 Nasal congestion; R09.82 Postnasal drip; R50.9 Fever, unspecified; R07.89 Other chest pain; R06.02 Shortness of breath; Z87.891 Personal history of nicotine dependence; Z20.822 Contact with and (suspected) exposure to COVID-19
CPT/HCPCS: 0241U-QW; 99283-25

== ENCOUNTER 2024-05-16 13:20 | Emergency (ER) | payer BC ==
[2024-05-16 13:34] VITALS: BP 146/73; PULSE 86; RESP 16; TEMP 98.5; BMI 43.6
[2024-05-16] MEDS ORDERED: FLUORESCEIN NA 1 EA STRIP ONE (13:45)
[2024-05-16] MEDS ORDERED: TETRACAINE 0.5% OPHTH SOLN 2 ML BOTTLE ONE (13:45)
[2024-05-16] MEDS: TETRACAINE 0.5% HCL 0.6ML DROPPER.BOTTLE OS ONE (13:50)
[2024-05-16] MEDS: FLUORESCEIN NA 1 EA STRIP OS STA (13:55)
== END 2024-05-16 14:18 | disposition home or self-care (01) ==
LOC: FER 13:20
DX: H10.9 Unspecified conjunctivitis (principal)
CPT/HCPCS: 99283-25

== ENCOUNTER 2024-05-22 14:14 | Emergency (ER) | payer OTHER, BC ==
[2024-05-22 14:37] VITALS: BP 134/79; PULSE 99; RESP 18; TEMP 98.2; BMI 45.1
[2024-05-22] MEDS ORDERED: KETOROLAC TROMETHAMINE 60 MG/2 ML VIAL ONE (14:51)
[2024-05-22] MEDS: KETOROLAC TROMETHAMINE 60 MG/2 ML VIAL IM ONE (14:55)
== END 2024-05-22 16:30 | disposition home or self-care (01) ==
LOC: FER 14:14
PROC: 3E0233Z Introduction of Anti-inflammatory into Muscle, Percutaneous Approach (ICD-10-PCS; principal; 2024-05-22)
DX: S39.92XA Unspecified injury of lower back, initial encounter (principal); V43.53XA Car driver injured in collision with pick-up truck in traffic accident, initial encounter; Y92.410 Unspecified street and highway as the place of occurrence of the external cause
CPT/HCPCS: 72070-TC-FY; 72100-TC-FY; 99284-25